=== PATIENT | male | born 1945 | race Caucasian/White ===

== ENCOUNTER 2023-10-21 19:23 | Outpatient (CLI) | payer MEDICARE, MEDICAID | END 2023-10-21 23:59 | disposition EMS.NT | LOC: EMS 19:23 | DX: F03.90 Unspecified dementia, unspecified severity, without behavioral disturbance, psychotic disturbance, mood disturbance, and anxiety (principal); Z91.83 Wandering in diseases classified elsewhere ==

== ENCOUNTER 2023-11-11 08:00 | Outpatient (CLI) | payer MEDICARE, MEDICAID | END 2023-11-11 23:59 | disposition home or self-care (01) | LOC: LAB.N 08:00 | PROVIDERS: ATTEND Physician Assistant Medical | DX: R35.0 Frequency of micturition (principal) | CPT/HCPCS: 87086 ==

== ENCOUNTER 2023-12-26 10:53 | Outpatient (CLI) | payer MEDICARE, MEDICAID | END 2023-12-26 10:54 | disposition critical access hospital (66) | LOC: EMS 10:53 | DX: R50.9 Fever, unspecified (principal); R53.1 Weakness; R09.89 Other specified symptoms and signs involving the circulatory and respiratory systems | CPT/HCPCS: A0425; A0429 ==

== ENCOUNTER 2023-12-26 11:21 | Emergency (ER) | payer MEDICARE, MEDICAID ==
--- NOTE | 2023-12-26 11:26 | ED Physician Documentation ---
PD HPI FEVER - Stated complaint Stated Complaint: FEVER/WEAKNESS - History obtained from History obtained from: EMS - Additional information Additional information: 78-year-old gentleman with dementia presents by ambulance from [facility] dementia care unit for a fever reportedly up to 103.5 today. History from EMS as the patient is demented but reported to be at his baseline. Reportedly the fever started today. He is also been listless with decreased energy over his usual. The patient has no specific complaints and is an unreliable historian. He did receive Tylenol at the facility prior to transport. PD PAST MEDICAL HISTORY - Present Medications Home Medications: Ambulatory Orders Medication Instructions Recorded Confirmed LORazepam [Ativan] 1 tab PO DAILY PRN 12/26/23 12/26/23 QUEtiapine [SEROquel] 1 tab PO BID PRN 12/26/23 12/26/23 QUEtiapine [SEROquel] 1 tab PO TID 12/26/23 12/26/23 - Allergies Allergies/Adverse Reactions: Allergies Allergy/AdvReac Type Severity Reaction Status Date / Time nitroglycerin Allergy Unknown Verified 12/26/23 11:32 PD ED PE NORMAL - Vitals Vital signs reviewed: Yes - General General: No acute distress, Other (He is alert and cooperative, oriented to person only) - HEENT HEENT: Other (Bilateral conjunctival irritation) - Neck Neck: Supple, no meningeal sign, No bony TTP - Cardiac Cardiac: RRR, No murmur - Respiratory Respiratory: No respiratory distress, Other (Rhonchorous left greater than right base) - Abdomen Abdomen: Non tender - Derm Derm: No rash - Neuro Eye Opening: Spontaneous Motor: Obeys Commands Verbal: Confused GCS Score: 14 Results - Vitals Vitals: Vital Signs - 24 hr 12/26/23 12/26/23 11:25 13:00 Temperature 38.4 C H 37.2 C Heart Rate 80 Respiratory 18 Rate Blood Pressure 130/70 O2 Saturation 94 Oxygen O2 Source Room air - Labs Labs: Laboratory Tests 12/26/23 12/26/23 12/26/23 11:38 11:38 11:38 WBC 10.0 RBC 3.91 L Hgb 12.1 L Hct 37.2 L MCV 95.1 H MCH 30.9 MCHC 32.5 RDW 12.8 Plt Count 226 MPV 10.4 Neut # (Auto) 7.5 H Lymph # (Auto) 1.9 Storey # (Auto) 0.5 Eos # (Auto) 0.1 Baso # (Auto) 0.0 Absolute Nucleated RBC 0.00 Nucleated RBC % 0.0 Sodium 137 Potassium 4.2 Chloride 100 L Carbon Dioxide 30 Anion Gap 7.0 BUN 11 Creatinine 0.8 Estimated GFR (MDRD) 94 Glucose 102 Lactic Acid 1.3 Calcium 9.1 Total Bilirubin 0.5 AST 10 ALT 10 Alkaline Phosphatase 68 Total Protein 6.8 Albumin 4.1 Globulin 2.7 Albumin/Globulin Ratio 1.5 Urine Color Urine Clarity Urine pH Ur Specific [place] Urine Protein Urine Glucose (UA) Urine Ketones Urine Occult Blood Urine Nitrite Urine Bilirubin Urine Urobilinogen Ur Leukocyte Esterase Urine RBC Urine WBC Ur Squamous Epith Cells Urine Bacteria Ur Microscopic Review Urine Culture Comments Nasal Adenovirus (PCR) Nasal B. parapertussis DNA (PCR) Nasal Coronavir 229E PCR Nasal Coronavir HKU1 PCR Nasal Coronavir NL63 PCR Nasal Coronavir OC43 PCR Nasal Enterovir/Rhinovir PCR Nasal Influenza B PCR Nasal Influenza A PCR Nasal Parainfluen 1 PCR Nasal Parainfluen 2 PCR Nasal Parainfluen 3 PCR Nasal Parainfluen 4 PCR Nasal RSV (PCR) Nasal B.pertussis DNA PCR Nasal C.pneumoniae (PCR) Beny Human Metapneumo PCR Nasal M.pneumoniae (PCR) Nasal SARS-CoV-2 (PCR) 12/26/23 12/26/23 11:45 12:07 WBC RBC Hgb Hct MCV MCH MCHC RDW Plt Count MPV Neut # (Auto) Lymph # (Auto) [place] # (Auto) Eos # (Auto) Baso # (Auto) Absolute Nucleated RBC Nucleated RBC % Sodium Potassium Chloride Carbon Dioxide Anion Gap BUN Creatinine Estimated GFR (MDRD) Glucose Lactic Acid Calcium Total Bilirubin AST ALT Alkaline Phosphatase Total Protein Albumin Globulin Albumin/Globulin Ratio Urine Color RED/BLOODY Urine Clarity HAZY Urine pH 7.0 Ur Specific [place] 1.020 Urine Protein 30 H Urine Glucose (UA) NEGATIVE Urine Ketones TRACE Urine Occult Blood LARGE H Urine Nitrite NEGATIVE Urine Bilirubin NEGATIVE Urine Urobilinogen 0.2 (NORMAL) Ur Leukocyte Esterase NEGATIVE Urine RBC TNTC H Urine WBC 0-3 Ur Squamous Epith Cells RARE Squamous Urine Bacteria Rare Ur Microscopic Review INDICATED Urine Culture Comments NOT INDICATED Nasal Adenovirus (PCR) NOT DETECTED Nasal B. parapertussis DNA (PCR) NOT DETECTED Nasal Coronavir 229E PCR NOT DETECTED Nasal Coronavir HKU1 PCR NOT DETECTED Nasal Coronavir NL63 PCR NOT DETECTED Nasal Coronavir OC43 PCR NOT DETECTED Nasal Enterovir/Rhinovir PCR NOT DETECTED Nasal Influenza B PCR NOT DETECTED Nasal Influenza A PCR NOT DETECTED Nasal Parainfluen 1 PCR NOT DETECTED Nasal Parainfluen 2 PCR NOT DETECTED Nasal Parainfluen 3 PCR DETECTED A Nasal Parainfluen 4 PCR NOT DETECTED Nasal RSV (PCR) NOT DETECTED Nasal B.pertussis DNA PCR NOT DETECTED Nasal C.pneumoniae (PCR) NOT DETECTED Beny Human Metapneumo PCR NOT DETECTED Nasal M.pneumoniae (PCR) NOT DETECTED Nasal SARS-CoV-2 (PCR) NOT DETECTED PD Medical Decision Making - ED course Complexity details: d/w family (I did update his POA, Ms. Pappas by phone.) ED course: 78-year-old demented gentleman presents from dementia facility with fever. Workup demonstrates CBC with mild anemia. CMP and lactate normal. Urinalysis is bloody, the RN noted to me that she had trialed a straight cath which was unsuccessful and that is likely the cause of any hematuria. He tested positive for parainfluenza 3 which is likely causative. This is a viral syndrome needs no specific treatment. Departure - Departure Disposition: 01 Home, Self Care Clinical Impression: Fever, Parainfluenza Condition: Good Record reviewed to determine appropriate education?: Yes Instructions: ED Viral Syndrome Comments: Catalino tested positive today per parainfluenza which is a viral process similar to the flu. There is no specific treatment other than fever control and pushing fluids. Return if worse.
[2023-12-26 11:41] VITALS: BP 130/70; O2SAT 94
[2023-12-26 11:45] LABS: BASOPHILS % (AUTO) 0.3 %; EOSINOPHILS # (AUTO) 0.1 10^3/uL (0.0-0.7); EOSINOPHILS % (AUTO) 0.6 %; HCT - HEMATOCRIT 37.2 % (42.0-52.0); HGB - HEMOGLOBIN 12.1 g/dL (14.0-18.0); LYMPHOCYTES # (AUTO) 1.9 10^3/uL (1.5-3.5); LYMPHOCYTES % (AUTO) 18.7 %; MEAN CORPUSCULAR HEMOGLOBIN 30.9 pg (27.0-31.0); MEAN CORPUSCULAR HGB CONC 32.5 g/dL (32.0-36.0); MEAN CORPUSCULAR VOLUME 95.1 fL (80.0-94.0); MEAN PLATELET VOLUME 10.4 fL (7.4-11.4); MONOCYTES # (AUTO) 0.5 10^3/uL (0.0-1.0); MONOCYTES % (AUTO) 5.4 %; NEUTROPHILS # (AUTO) 7.5 10^3/uL (1.5-6.6); NEUTROPHILS % (AUTO) 74.7 %; PLT - PLATELET COUNT 226 10^3/uL (130-450); RED BLOOD COUNT 3.91 10^6/uL (4.70-6.10); RED CELL DISTRIBUTION WIDTH 12.8 % (12.0-15.0)
[2023-12-26 12:04] LABS: ALBUMIN 4.1 g/dL (3.2-5.5); ALBUMIN/GLOBULIN RATIO 1.5 (1.0-2.2); BILIRUBIN,TOTAL 0.5 mg/dL (0.2-1.0); CALCIUM 9.1 mg/dL (8.5-10.3); CREATININE 0.8 mg/dL (0.6-1.3); POTASSIUM 4.2 mmol/L (3.5-4.5); TOTAL PROTEIN 6.8 g/dL (6.4-8.9)
[2023-12-26 12:17] LABS: BILIRUBIN,URINE NEGATIVE (NEGATIVE); GLUCOSE, URINE (UA) NEGATIVE (NEGATIVE); KETONES,URINE (UA) TRACE mg/dL (NEGATIVE); LEUKOCYTE ESTERASE, URINE NEGATIVE (NEGATIVE); NITRITE,URINE NEGATIVE (NEGATIVE); OCCULT BLOOD,URINE LARGE (NEGATIVE); PROTEIN,URINE 30 mg/dL (NEGATIVE); UROBILINOGEN,URINE 0.2 (NORMAL) E.U./dL (NORMAL)
[2023-12-26 12:23] LABS: CLARITY,URINE HAZY (CLEAR)
[2023-12-26 12:42] LABS: B. PARAPERTUSSIS- RESP PCR PAN NOT DETECTED; B. PERTUSSIS- RESP PCR PANEL NOT DETECTED; C. PNEUMONIAE- RESP PCR PANEL NOT DETECTED; CORONAVIRUS 229E-RESP PCR NOT DETECTED; CORONAVIRUS HKU1-RESP PCR NOT DETECTED; CORONAVIRUS NL63-RESP PCR NOT DETECTED; CORONAVIRUS OC43-RESP PCR NOT DETECTED; HUMAN METAPNEUMOVIRUS NOT DETECTED; INFLUENZA A- RESP PCR PANEL NOT DETECTED; INFLUENZA B - RESP PCR PANEL NOT DETECTED; M. PNEUMONIAE- RESP PCR PANEL NOT DETECTED; PARAINFLUENZA VIRUS 1 NOT DETECTED; PARAINFLUENZA VIRUS 2 NOT DETECTED; PARAINFLUENZA VIRUS 3 DETECTED; PARAINFLUENZA VIRUS 4 NOT DETECTED; RHINOVIRUS/ENTEROVIRUS NOT DETECTED; RSV- RESP PCR PANEL NOT DETECTED; SARS-CoV-2 -RESP PCR PANEL NOT DETECTED
[2023-12-26 12:48] LABS: BACTERIA,URINE Rare /HPF (None Seen); RBC,URINE TNTC /HPF (0-5); SQUAMOUS EPITHELIAL CELL,UR RARE Squamous (<= Few); WBC,URINE 0-3 /HPF (0-3)
--- NOTE | 2023-12-26 12:52 | XRAY Report ---
PROCEDURE: Chest 1V INDICATIONS: fever TECHNIQUE: One view of the chest was acquired. COMPARISON: None. FINDINGS: Surgical changes and devices: None. Lungs and pleura: Patient is rotated, limiting evaluation. No pleural effusions or pneumothorax. Anna ngs are clear. Mediastinum: Mediastinal contours appear normal. Heart size is normal. Bones and chest wall: No suspicious bony lesions. Overlying soft tissues appear unremarkable. IMPRESSION: No acute cardiopulmonary process. Reviewed by: Eduardo Fisher MD on 12/26/2023 12:50 PM PDT Approved by: Eduardo Fisher MD on 12/26/2023 12:50 PM PDT Station ID: [id number]
[2023-12-26] MEDS: QUEtiapine 100 MG TABLET PO STA (13:13)
== END 2023-12-26 13:38 | disposition home or self-care (01) ==
LOC: EDUNIT# → ED 11:21
DX: B34.8 Other viral infections of unspecified site (principal); R31.9 Hematuria, unspecified; F03.90 Unspecified dementia, unspecified severity, without behavioral disturbance, psychotic disturbance, mood disturbance, and anxiety
CPT/HCPCS: 36415; 71045; 80053; 81001; 83605; 85025; 87040; 87633; 99283; 99284; A9270; 81003; 87086

== ENCOUNTER 2023-12-26 13:47 | Outpatient (CLI) | payer MEDICARE, MEDICAID | END 2023-12-26 23:59 | disposition home or self-care (01) | LOC: EMS 13:47 | PROVIDERS: ATTEND Emergency Medicine | DX: F03.90 Unspecified dementia, unspecified severity, without behavioral disturbance, psychotic disturbance, mood disturbance, and anxiety (principal); J18.9 Pneumonia, unspecified organism; B34.8 Other viral infections of unspecified site; Z74.01 Bed confinement status | CPT/HCPCS: A0425; A0428 ==

== ENCOUNTER 2023-12-29 12:34 | Inpatient (IN) | payer MEDICARE, MEDICAID ==
[2023-12-29] MEDS: SODIUM CHLORIDE 0.9% 1,000 ML IV STA ×3 (12:47→13:53)
[2023-12-29] MEDS: ACETAMINOPHEN 650 MG SUPP PR STA (13:01)
--- NOTE | 2023-12-29 13:03 | ED Physician Documentation ---
History of Present Illness - Stated complaint Stated Complaint: ALT LOC/FEVER - Chief complaint Chief Complaint: General - History obtained from History obtained from: EMS, Other (Sister) - Additonal information Additional information: Patient is a 78-year-old male with a history of dementia from critical access hospital presenting for evaluation of worsening altered mental status. Patient was seen a few days ago in the emergency department for weakness and fever and found to have an infection related to parainfluenza. He was discharged back to his assisted living facility. Reportedly yesterday and today he has continued to have spikes of fevers and has become increasingly weak and altered. EMS was called this morning and they noted that he had heart rate elevated in the 250s. He does have a POLST at that they reviewed stating that he is a DNR and comfort measures only. Child Care Group Leader spoke with patient's POA who gave consent for cardioversion. Patient was cardioverted with 100 J of electricity And patient's heart rate is now in the 150s. cabin crew were also bagging the patient to assist with his ventilations as he was hypoxic. Review of Systems Unable to obtain: Confused, Dementia PD PAST MEDICAL HISTORY - Past Medical History Past Medical History: Yes Neuro: Dementia - Past Surgical History Past Surgical History: No - Present Medications Home Medications: Ambulatory Orders Medication Instructions Recorded Confirmed QUEtiapine [SEROquel] 100 mg PO BID PRN 12/26/23 12/29/23 QUEtiapine [SEROquel] 100 mg PO TID 12/26/23 12/29/23 Acetaminophen [Acetaminophen Extra 1,000 mg PO TID 12/29/23 12/29/23 Strength] Divalproex [Adams Castro] 125 mg PO BID 12/29/23 12/29/23 Gabapentin [Neurontin] 300 mg PO TID 12/29/23 12/29/23 LORazepam [Ativan] 0.5 mg PO DAILY PRN 12/29/23 12/29/23 LORazepam [Ativan] 0.5 mg PO HS 12/29/23 12/29/23 Sertraline HCl 100 mg PO DAILY 12/29/23 12/29/23 Trazodone HCl 100 mg PO HS 12/29/23 12/29/23 cloNIDine [Catapres] 0.1 mg PO BID 12/29/23 12/29/23 - Allergies Allergies/Adverse Reactions: Allergies Allergy/AdvReac Type Severity Reaction Status Date / Time nitroglycerin Allergy Unknown Verified 12/29/23 12:48 - Social History Does the pt smoke?: No Smoking Status: Never smoker Does the pt drink ETOH?: No Does the pt have substance abuse?: No PD ED PE NORMAL - General General: Other (Altered, responsive to painful stimuli, moans,). No: Alert and oriented X 3 - HEENT HEENT: Atraumatic, PERRL, EOMI, Other (Dry mucous membranes) - Cardiac Cardiac: Other (Tachycardic, regular rhythm) - Respiratory Respiratory: Other (Tachypneic, shallow respirations) - Abdomen Abdomen: Normal bowel sounds, Soft, Non tender, Non distended - Derm Derm: Other (Mottled extremities) - Neuro Neuro: No: Alert and oriented X 3 Results - Vitals Vitals: Vital Signs - 24 hr 12/29/23 12/29/23 12/29/23 12:42 13:02 13:08 Temperature 39.4 C H 40.8 C H Heart Rate 153 H 147 H Respiratory 53 H 21 Rate Blood Pressure 157/86 H 169/83 H O2 Saturation 95 99 If not protocol 15 : Oxygen Flow, liters/minute 12/29/23 12/29/23 12/29/23 13:30 14:00 14:20 Temperature 39.2 C H Heart Rate 122 H 109 H Respiratory 35 H 31 H Rate Blood Pressure 163/66 H 137/62 H O2 Saturation 100 100 If not protocol 15 15 : Oxygen Flow, liters/minute 12/29/23 12/29/23 12/29/23 14:54 15:00 15:59 Temperature 37.6 C Heart Rate 109 H 112 H 106 H Respiratory 27 H 27 H 31 H Rate Blood Pressure 132/66 H 130/63 130/81 H O2 Saturation 96 94 93 If not protocol 9 9 6 : Oxygen Flow, liters/minute Oxygen O2 Source Simple Mask - EKG (time done) 1243 EKG releavant findings:: EKG personally interpreted by author of this note. Relevant findings are: Rate 149, SVT, no STEMI - Labs Labs: Laboratory Tests 12/29/23 12/29/23 12/29/23 12:45 12:57 12:57 WBC 9.6 RBC 4.21 L Hgb 12.9 L Hct 40.6 L MCV 96.4 H MCH 30.6 MCHC 31.8 L RDW 13.1 Plt Count 251 MPV 11.7 H Neut # (Auto) 7.8 H Lymph # (Auto) 1.4 L [place] # (Auto) 0.2 Eos # (Auto) 0.0 Baso # (Auto) 0.1 Absolute Nucleated RBC 0.05 Nucleated RBC % 0.5 Manual Slide Review Indicated RBC Morph Micro Appear 1+ ANISOCYTOSIS Sodium 142 Potassium 3.7 Chloride 104 Carbon Dioxide 17 L Anion Gap 21.0 H BUN 43 H Creatinine 2.2 H Estimated GFR (MDRD) 29 L Glucose 303 H Lactic Acid Calcium 9.1 Total Bilirubin 1.1 H AST 24 ALT 19 Alkaline Phosphatase 43 B-Natriuretic Peptide Total Protein 7.1 Albumin 3.6 Globulin 3.5 Albumin/Globulin Ratio 1.0 Lipase < 10 L Urine Color Urine Clarity Urine pH Ur Specific [place] Urine Protein Urine Glucose (UA) Urine Ketones Urine Occult Blood Urine Nitrite Urine Bilirubin Urine Urobilinogen Ur Leukocyte Esterase Urine RBC Urine WBC Ur Squamous Epith Cells Urine Bacteria Urine Casts Ur Microscopic Review Urine Culture Comments Nasal Adenovirus (PCR) NOT DETECTED Nasal B. parapertussis DNA (PCR) NOT DETECTED Nasal Coronavir 229E PCR NOT DETECTED Nasal Coronavir HKU1 PCR NOT DETECTED Nasal Coronavir NL63 PCR NOT DETECTED Nasal Coronavir OC43 PCR NOT DETECTED Nasal Enterovir/Rhinovir PCR NOT DETECTED Nasal Influenza B PCR NOT DETECTED Nasal Influenza A PCR NOT DETECTED Nasal Parainfluen 1 PCR NOT DETECTED Nasal Parainfluen 2 PCR NOT DETECTED Nasal Parainfluen 3 PCR DETECTED A Nasal Parainfluen 4 PCR NOT DETECTED Nasal RSV (PCR) NOT DETECTED Nasal B.pertussis DNA PCR NOT DETECTED Nasal C.pneumoniae (PCR) NOT DETECTED Beny Human Metapneumo PCR NOT DETECTED Nasal M.pneumoniae (PCR) NOT DETECTED Nasal SARS-CoV-2 (PCR) NOT DETECTED 12/29/23 12/29/23 12/29/23 12:57 12:57 14:16 WBC RBC Hgb Hct MCV MCH MCHC RDW Plt Count MPV Neut # (Auto) Lymph # (Auto) [place] # (Auto) Eos # (Auto) Baso # (Auto) Absolute Nucleated RBC Nucleated RBC % Manual Slide Review RBC Morph Micro Appear Sodium Potassium Chloride Carbon Dioxide Anion Gap BUN Creatinine Estimated GFR (MDRD) Glucose Lactic Acid 7.8 H* Calcium Total Bilirubin AST ALT Alkaline Phosphatase B-Natriuretic Peptide 750 H Total Protein Albumin Globulin Albumin/Globulin Ratio Lipase Urine Color DARK YELLOW Urine Clarity CLEAR Urine pH 6.0 Ur Specific [place] 1.025 Urine Protein 100 H Urine Glucose (UA) NEGATIVE Urine Ketones NEGATIVE Urine Occult Blood MODERATE H Urine Nitrite NEGATIVE Urine Bilirubin NEGATIVE Urine Urobilinogen 1 (NORMAL) Ur Leukocyte Esterase NEGATIVE Urine RBC 11-25 H Urine WBC 4-5 Ur Squamous Epith Cells NONE SEEN Urine Bacteria Rare Urine Casts 0-2 Cellular Casts Ur Microscopic Review INDICATED Urine Culture Comments NOT INDICATED Nasal Adenovirus (PCR) Nasal B. parapertussis DNA (PCR) Nasal Coronavir 229E PCR Nasal Coronavir HKU1 PCR Nasal Coronavir NL63 PCR Nasal Coronavir OC43 PCR Nasal Enterovir/Rhinovir PCR Nasal Influenza B PCR Nasal Influenza A PCR Nasal Parainfluen 1 PCR Nasal Parainfluen 2 PCR Nasal Parainfluen 3 PCR Nasal Parainfluen 4 PCR Nasal RSV (PCR) Nasal B.pertussis DNA PCR Nasal C.pneumoniae (PCR) Beny Human Metapneumo PCR Nasal M.pneumoniae (PCR) Nasal SARS-CoV-2 (PCR) PD Medical Decision Making - ED course Complexity details: reviewed results, d/w patient, d/w family ED course: Patient is a 78-year-old male who is a DNR, comfort measures only on his pulse presenting with altered mental status, hypoxic, febrile. He is altered. He was cardioverted in the field for SVT with heart rates in the 250s. Heart rate on arrival is 150s. Blood pressure has been stable. Rectal temp is 105. Sepsis labs initiated. Chest x-ray which I reviewed shows opacities suggestive of pulmonary edema. Lactic is elevated at 7.5.Creatinine 2.2 (normal a few days ago). Likely related to dehydration. Patient was given 3 L of IV fluids, acetaminophen. CT head, chest and abdomen pelvis were obtained and reviewed. Patient has findings on CT CT scan of the chest of multifocal pneumonia. Started on Rocephin and vancomycin. Remains minimally responsive but blood pressures have been stable. Discussed with admitting hospitalist who will admit to ICU for further management. 1240 - D/W POA Sister - Agrees that patient is a DNR and would not want aggressive resuscitation. However states that she does think he would want m edical treatment such as antibiotics and fluids and hospitalization and not just comfort measures as indicated on his POLST. - Critical Care Time(min): 40 Time Includes: Direct patient care, Review records, Reassess patient Departure - Departure Disposition: 66 [facility] DC/Xfer Clinical Impression: Multifocal pneumonia, Acute hypoxemic respiratory failure, SVT (supraventricular tachycardia), Sepsis, Parainfluenza, Acute encephalopathy, SHAZIA (acute kidney injury) Condition: Critical Discharge Date/Time: 12/29/23 17:49
[2023-12-29 13:13] LABS: BASOPHILS # (AUTO) 0.1 10^3/uL (0.0-0.1); BASOPHILS % (AUTO) 0.8 %; HCT - HEMATOCRIT 40.6 % (42.0-52.0); HGB - HEMOGLOBIN 12.9 g/dL (14.0-18.0); LYMPHOCYTES # (AUTO) 1.4 10^3/uL (1.5-3.5); LYMPHOCYTES % (AUTO) 14.5 %; MEAN CORPUSCULAR HEMOGLOBIN 30.6 pg (27.0-31.0); MEAN CORPUSCULAR HGB CONC 31.8 g/dL (32.0-36.0); MEAN CORPUSCULAR VOLUME 96.4 fL (80.0-94.0); MEAN PLATELET VOLUME 11.7 fL (7.4-11.4); MONOCYTES # (AUTO) 0.2 10^3/uL (0.0-1.0); MONOCYTES % (AUTO) 2.4 %; NEUTROPHILS # (AUTO) 7.8 10^3/uL (1.5-6.6); NEUTROPHILS % (AUTO) 81.2 %; NRBC ABSOLUTE COUNT (AUTO) 0.05 x10^3/uL; NUCLEATED RED BLOOD CELLS AUTO 0.5 /100WBC; PLT - PLATELET COUNT 251 10^3/uL (130-450); RED BLOOD COUNT 4.21 10^6/uL (4.70-6.10); RED CELL DISTRIBUTION WIDTH 13.1 % (12.0-15.0); WHITE BLOOD COUNT 9.6 x10^3/uL (4.8-10.8)
[2023-12-29 13:18] LABS: SLIDE REVIEW? Indicated
[2023-12-29] MEDS: KETOROLAC 15 MG/ML VIAL IVP STA (13:23)
[2023-12-29 13:30] LABS: ALBUMIN 3.6 g/dL (3.2-5.5); ALKALINE PHOSPHATASE 43 IU/L (42-121); ALT ALANINE AMINOTRANSFERASE 19 IU/L (10-60); AST ASPARTATE AMINOTRANSFERASE 24 IU/L (10-42); BILIRUBIN,TOTAL 1.1 mg/dL (0.2-1.0); BUN - BLOOD UREA NITROGEN 43 mg/dL (6-20); CALCIUM 9.1 mg/dL (8.5-10.3); CARBON DIOXIDE - CO2 17 mmol/L (21-32); CHLORIDE 104 mmol/L (101-111); CREATININE 2.2 mg/dL (0.6-1.3); GFR - MDRD 29 (>89); GLUCOSE 303 mg/dL (74-104); LIPASE < 10 U/L (11-82); POTASSIUM 3.7 mmol/L (3.5-4.5); SODIUM 142 mmol/L (135-145); TOTAL PROTEIN 7.1 g/dL (6.4-8.9)
[2023-12-29 13:34] LABS: RBC MORPHOLOGY (MULTIPLE) 1+ ANISOCYTOSIS (NORMAL)
--- NOTE | 2023-12-29 14:16 | XRAY Report ---
PROCEDURE: Chest 1V INDICATIONS: SOA TECHNIQUE: One view of the chest was acquired. COMPARISON: None. FINDINGS: Surgical changes and devices: None. Lungs and pleura: Interstitial markings and perihilar opacities with peripheral bronchial cuffing. Mediastinum: Mediastinal contours appear normal. Heart size is enlarged. Bones and chest wall: No suspicious bony lesions. Overlying soft tissues appear unremarkable. IMPRESSION: Suspected moderate to severe pulmonary edema. Superimposed atypical pneumonia not excluded. Reviewed by: Usman Butler MD on 12/29/2023 2:15 PM PDT Approved by: Usman Butler MD on 12/29/2023 2:15 PM PDT Station ID: [id number]
[2023-12-29 14:19] LABS: BILIRUBIN,URINE NEGATIVE (NEGATIVE); GLUCOSE, URINE (UA) NEGATIVE (NEGATIVE); KETONES,URINE (UA) NEGATIVE (NEGATIVE); LEUKOCYTE ESTERASE, URINE NEGATIVE (NEGATIVE); NITRITE,URINE NEGATIVE (NEGATIVE); OCCULT BLOOD,URINE MODERATE (NEGATIVE); PROTEIN,URINE 100 mg/dL (NEGATIVE); UROBILINOGEN,URINE 1 (NORMAL) E.U./dL (NORMAL)
[2023-12-29 14:20] LABS: CLARITY,URINE CLEAR (CLEAR)
[2023-12-29 14:21] LABS: B. PARAPERTUSSIS- RESP PCR PAN NOT DETECTED; B. PERTUSSIS- RESP PCR PANEL NOT DETECTED; C. PNEUMONIAE- RESP PCR PANEL NOT DETECTED; CORONAVIRUS 229E-RESP PCR NOT DETECTED; CORONAVIRUS HKU1-RESP PCR NOT DETECTED; CORONAVIRUS NL63-RESP PCR NOT DETECTED; CORONAVIRUS OC43-RESP PCR NOT DETECTED; HUMAN METAPNEUMOVIRUS NOT DETECTED; INFLUENZA A- RESP PCR PANEL NOT DETECTED; INFLUENZA B - RESP PCR PANEL NOT DETECTED; M. PNEUMONIAE- RESP PCR PANEL NOT DETECTED; PARAINFLUENZA VIRUS 1 NOT DETECTED; PARAINFLUENZA VIRUS 2 NOT DETECTED; PARAINFLUENZA VIRUS 3 DETECTED; PARAINFLUENZA VIRUS 4 NOT DETECTED; RHINOVIRUS/ENTEROVIRUS NOT DETECTED; RSV- RESP PCR PANEL NOT DETECTED; SARS-CoV-2 -RESP PCR PANEL NOT DETECTED
[2023-12-29 14:25] LABS: BACTERIA,URINE Rare /HPF (None Seen); SQUAMOUS EPITHELIAL CELL,UR NONE SEEN (<= Few)
--- NOTE | 2023-12-29 16:17 | CT Report ---
PROCEDURE: Abdomen/Pelvis WO INDICATIONS: fever/renal failure TECHNIQUE: A CT scan of the abdomen and pelvis was performed without the use of intravenous contrast. Images we re recorded and evaluated at appropriate window settings. Reformats: coronal and sagittal. For radiat ion dose reduction, the following was used: automated exposure control, adjustment of mA and/or kV ac cording to patient size. COMPARISON: None. FINDINGS: Image quality: Suboptimal due to motion artifact and arm positioning. Lower chest: Separately dictated. Liver: No contour-deforming mass. Gallbladder: No radiopaque stones or wall thickening. Biliary tree: No intrahepatic or extrahepatic dilation, accounting for age. Spleen: No splenomegaly. Pancreas: No pancreatic ductal dilation. Adrenals: No adrenal nodule. Kidneys and ureters: No hydronephrosis. No contour-deforming mass. Stomach, bowel and peritoneum: No gastric or small bowel dilation. No abnormal wall thickening. No pa thologic free fluid. Diverticulosis without evidence of diverticulitis. Lymph nodes: No central or retroperitoneal adenopathy. Vessels: No infrarenal aortic aneurysm. Reproductive organs: Prostate is enlarged. Bladder: Bladder wall thickness is normal, accounting for underdistention. No calcified bladder stone s. Pelvic lymph nodes: No adenopathy by size criteria. Bones: No aggressive osseous abnormality. Other: Small right inguinal hernia containing fat. IMPRESSION: No infectious process of the abdomen. Please see same day chest CT for further discussion. Colonic diverticulosis without evidence of diverticulitis. Reviewed by: Usman Butler MD on 12/29/2023 4:16 PM PDT Approved by: Usman Butler MD on 12/29/2023 4:16 PM PDT Station ID: [id number]
--- NOTE | 2023-12-29 16:19 | CT Report ---
PROCEDURE: Chest WO INDICATIONS: Fever, AMS TECHNIQUE: A CT scan of the chest was performed. Intravenous contrast media was not administered. Images were re corded and evaluated at appropriate window settings. Reformats: axial MIP of the chest, coronal and s agittal. For radiation dose reduction, the following was used: automated exposure control, adjustment of mA and/or kV according to patient size. COMPARISON: Same day chest radiograph. FINDINGS: Image quality: Diagnostic. Chest wall and lower neck: No thyroid nodule which requires sonographic follow up. No axillary or sup raclavicular adenopathy by size. Lungs and pleura: Dependent consolidation and dependent groundglass. Superimposed mild smooth interst itial thickening. Mediastinum: Heart size is enlarged. No pericardial effusion. No large vessel abnormality. No mediast inal adenopathy by size criteria. Three-vessel coronary calcifications. Bones: No aggressive osseous abnormality. Upper Abdomen: Separately dictated. IMPRESSION: Dependent consolidation and dependent groundglass concerning for aspiration or multifocal pneumonia. Superimposed mild pulmonary edema. Reviewed by: Usman Butler MD on 12/29/2023 4:18 PM PDT Approved by: Usman Butler MD on 12/29/2023 4:18 PM PDT Station ID: [id number]
--- NOTE | 2023-12-29 16:24 | CT Report ---
PROCEDURE: Head WO INDICATIONS: AMS TECHNIQUE: Noncontrast 4.5 mm thick angled axial sections acquired from the foramen magnum to the vertex. For r adiation dose reduction, the following was used: automated exposure control, adjustment of mA and/or kV according to patient size. COMPARISON: None. FINDINGS: Image quality: Excellent. CSF spaces: Basal cisterns are patent. No extra-axial fluid collections. Ventricles are normal in size and shape. Brain: No midline shift. No intracranial masses or hemorrhage. [place]-white matter interface is norm al. Intracranial carotid calcifications. Age-related volume loss and small vessel ischemic change. Skull and face: Calvarium and visualized facial bones are intact, without suspicious lesions. Sinuses: Visualized sinuses and mastoids are clear. IMPRESSION: No acute intracranial pathology. Reviewed by: Fabian Woodruff MD on 12/29/2023 4:22 PM PDT Approved by: Fabian Woodruff MD on 12/29/2023 4:22 PM PDT Station ID: [id number]
[2023-12-29] MEDS ORDERED: ONDANSETRON 4 MG/2 ML VIAL IVP PRN (16:37)
[2023-12-29] MEDS ORDERED: ONDANSETRON ODT 4 MG TABLET TL PRN (16:37)
[2023-12-29] MEDS: cefTRIAXone 1 GM in SODIUM CHLORIDE 0.9% MINIBAG 100 ML IV STA (16:42)
--- NOTE | 2023-12-29 16:54 | PHARMACY PROGRESS NOTE ---
- Therapy Status Vancomycin regimen day #: 1 Therapy status: Awaiting steady state Basis for treatment: Empirical Treatment indication: AMS? Trough goal: AUC 400-600 - SHAZIA Risk Risk level for Acute Kidney Injury: High Acute Kidney Injury risk factors: Other nephrotoxic agents, Piperacillin/Tozobactam, Baseline CrCl <50, Goal trough >15 - Monitoring and Recommendation Clinical response to treatment: I&O Previous 24 hours 12/27/23 12/28/23 12/29/23 23:59 23:59 23:59 Intake Total 3000 Balance 3000 Lab Results 12/29/23 12:57 BUN 43 H Creatinine 2.2 H Estimated GFR (MDRD) 29 L Areas for additional monitoring: IV to PO when appropriate, Therapy de-escalat ion based on culture results, Acute Kidney Injury, C. difficile infection risk reduction Pharmacy recommendation: Continue current regime (LOAD W/ 1000 MG X1. OBTAIN RANDOM VANCO LEVEL IN AM TO ENSURE CLEARANCE. DOSE PER LEVELS FOR SHAZIA.)
[2023-12-29] MEDS ORDERED: VANCOMYCIN INJ 1 GM in SODIUM CHLORIDE 0.9% 250 ML IV ONE (17:00)
--- NOTE | 2023-12-29 17:11 | HISTORY & PHYSICAL EXAMINATION ---
Chief Complaint - Chief Complaint Chief Complaint: Encephalopathy History of Present Illness - Admitted From Admitted From:: ED - History Obtained From Records Reviewed: Yes History obtained from: Chart Exam Limitations: Patient is encephalopathic- - History of Present Illness HPI Comment/Other: Patient is a 78-year-old male with a past medical history of dementia who presented to the ED with worsening altered mental status. Patient was seen in the emergency department several days ago with weakness and fever and was di agnosed with parainfluenza. Unfortunately his symptoms continue to worsen and he presented again today. Prior to arrival, EMS was called and noted that he had a heart rate in the 250s and he was given a synchronized cardioversion due to concern for SVT. Upon presentation to the ED he was noted to be hypoxic requiring supplemental oxygen. Patient was noted to be severely septic with an elevated lactic acid. CT scans revealed evidence of pneumonia he was started on IV vancomycin and ceftriaxone. Per patient's POLST, he is DNR with comfort care orders. Discussion was had with his POA and guardian who informed me that she is open to treating all reversible conditions with antibiotics, fluids, medications however she did not want any heroic measures including intubation or pressors. He remains DNR. Patient also does not have any history of seizures. At baseline he is demented but is conversational. Patient admitted admitted to the ICU for further management of his severe sepsis. History - Past Medical History Neuro: reports: Dementia MRSA Hx?: No Meds/Allgy - Home Medications Home Medications: Ambulatory Orders Medication Instructions Recorded Confirmed QUEtiapine [SEROquel] 1 tab PO BID PRN 12/26/23 12/29/23 QUEtiapine [SEROquel] 1 tab PO TID 12/26/23 12/29/23 Acetaminophen [Acetaminophen Extra 1,000 mg PO TID 12/29/23 12/29/23 Strength] Divalproex Dr [Depakote Dr] 125 mg PO BID 12/29/23 12/29/23 Gabapentin [Neurontin] 300 mg PO TID 12/29/23 12/29/23 LORazepam [Ativan] 0.5 mg PO DAILY PRN 12/29/23 12/29/23 LORazepam [Ativan] 0.5 mg PO HS 12/29/23 12/29/23 Sertraline HCl 100 mg PO DAILY 12/29/23 12/29/23 Trazodone HCl 100 mg PO HS 12/29/23 12/29/23 cloNIDine [Catapres] 0.1 mg PO BID 12/29/23 12/29/23 - Allergies Allergies/Adverse Reactions: Allergies Allergy/AdvReac Type Severity Reaction Status Date / Time nitroglycerin Allergy Unknown Verified 12/29/23 12:48 Review of Systems - Other Findings Other Findings: Unable to assess due to encephalopathy. Prior Level of Functionality: Resides in dementia unit. Home Place. Exam - Vital Signs Vital Signs: Vital Signs x48h Temp Pulse Resp BP Pulse Ox O2 Flow Rate 12/29/23 15:59 37.6 C 106 H 31 H 130/81 H 93 6 12/29/23 15:00 112 H 27 H 130/63 94 9 12/29/23 14:54 109 H 27 H 132/66 H 96 9 12/29/23 14:20 109 H 31 H 137/62 H 100 15 12/29/23 14:00 39.2 C H 12/29/23 13:30 122 H 35 H 163/66 H 100 15 12/29/23 13:08 40.8 C H 12/29/23 13:02 147 H 21 169/83 H 99 15 12/29/23 12:42 39.4 C H 153 H 53 H 157/86 H 95 - Physical Exam General Appearance: positive: Other (Encephalopathic) Eyes Bilateral: positive: Normal inspection, PERRL Respiratory: positive: Chest non-tender, No respiratory distress, Breath sounds nml Cardiovascular: positive: No murmur, No gallop, Tachycardia Abdomen: positive: Non-tender, No organomegaly, Nml bowel sounds Neurologic/Psychiatric: positive: Oriented x3, CN's nml (2-12) Sepsis Event Note (H) - Sepsis Criteria Sepsis Criteria: Recorded Temperature greater than 38.3C or Less than 36C, Recorded Heart Rate greater than 90 bpm, Metabolic: lactate > 2 mmol/L Conclusion/Plan - Problem List (1) Severe sepsis Conclusion/Plan: --Severe sepsis secondary to suspected bacterial pneumonia, possibly gram negative. Some concern for aspiration. --Start on IV Vancomycin and Zosyn. --Blood cultures pending. Will also obtain a respiratory culture. --Patient is DNR with comfort care on POLST. We will monitor him in the ICU and downgrade as necessary. Did have a discussion with his POA after he was admitted, she did not want any heroic measures. He is appropriate for the med/surg floor. (2) Lactic acidosis Conclusion/Plan: --Will trend until clearance of LA. (3) Parainfluenza Conclusion/Plan: --Will treat with dexamethasone. He is requiring supplemental oxygen. (4) Dementia Conclusion/Plan: --Patient is on several chronic medications. Will hold them for now given his acute encephalopathy and concern for aspiration. - Lab Results Fish Bones: 12/29/23 12:57 12/29/23 12:57 - Diagnostic Imaging Results Diagnostic Imaging Results: positive: Final report reviewed
[2023-12-29] MEDS: VANCOMYCIN INJ 1 GM in SODIUM CHLORIDE 0.9% 250 ML IV ONE (18:06)
[2023-12-29] MEDS: SODIUM CHLORIDE 0.9% 1,000 ML IV SCH (18:06)
[2023-12-29] MEDS: SODIUM CHLORIDE FLUSH 0.9% 10 ML SYRINGE IVP SCH (18:07)
--- NOTE | 2023-12-29 18:20 | PHARMACY PROGRESS NOTE ---
- Best Possible Medication History Admit Date and Time: 12/29/23 9903 Processed by: Pharmacy Medications reviewed in ED?: Yes Medication History completed: Yes Patient Interview: Pt unable to participate Secondary Source(s): Written medication list, Pharmacy records, Insurance records As the person ultimately responsible for medication therapy, providers are able to order a medication from an existing home medication list in [facility] via the "Reconcile Routine" prior to Confirmation of that medication by client support manager. Such practice is discouraged except when the physician, in their clinical judgment, deems that a medical need exists for a medication without regard to previous use.
[2023-12-29] MEDS: PIPERACILLIN/TAZOBACTAM 3.375 GM in SODIUM CHLORIDE 0.9% MINIBAG 100 ML IV SCH (22:47)
[2023-12-30 04:49] LABS: BASOPHILS % (AUTO) 1.2 %; HCT - HEMATOCRIT 37.5 % (42.0-52.0); HGB - HEMOGLOBIN 11.7 g/dL (14.0-18.0); LYMPHOCYTES % (AUTO) 9.9 %; MEAN CORPUSCULAR HEMOGLOBIN 30.6 pg (27.0-31.0); MEAN CORPUSCULAR HGB CONC 31.2 g/dL (32.0-36.0); MEAN CORPUSCULAR VOLUME 98.2 fL (80.0-94.0); MEAN PLATELET VOLUME 11.7 fL (7.4-11.4); MONOCYTES % (AUTO) 2.8 %; NEUTROPHILS % (AUTO) 85.1 %; PLT - PLATELET COUNT 207 10^3/uL (130-450); RED BLOOD COUNT 3.82 10^6/uL (4.70-6.10); RED CELL DISTRIBUTION WIDTH 13.4 % (12.0-15.0); WHITE BLOOD COUNT 6.1 x10^3/uL (4.8-10.8)
[2023-12-30] MEDS: ACETAMINOPHEN 1,000 MG/100 ML 1,000 MG/100 ML BAG IV PRN (05:00)
[2023-12-30 05:02] LABS: ABNORMAL LYMPHS % (MANUAL) 0 %; BAND NEUTROPHILS % (MANUAL) 0 %
[2023-12-30 05:09] LABS: CALCIUM 8.5 mg/dL (8.5-10.3); CREATININE 1.6 mg/dL (0.6-1.3)
[2023-12-30 05:11] LABS: MAGNESIUM 2.4 mg/dL (1.7-2.3); PHOSPHORUS 2.8 mg/dL (2.5-5.0)
[2023-12-30 05:19] LABS: VANCOMYCIN,RANDOM 9.5 ug/mL
[2023-12-30 05:47] LABS: CALCIUM, IONIZED 1.09 mmol/L (1.15-1.33); VBG PH 7.368 (7.31-7.41)
[2023-12-30 06:05] LABS: LYMPHOCYTES % (MANUAL) 21 %; NEUTROPHILS # (MANUAL) 3.2 10^3/uL (1.5-6.6); REACTIVE LYMPHS % (MANUAL) 11 %
[2023-12-30 06:06] LABS: DIFFERENTIAL COMMENT MANUAL DIFFERENTIAL; PLATELET ESTIMATE, MANUAL NORMAL (130-450,000) (NORMAL); PLATELET MORPHOLOGY PLATELET C (NORMAL)
[2023-12-30] MEDS: CALCIUM GLUC 1,000MG/50ML-NACL 1,000 MG/50 ML BAG IV ONE (06:13)
[2023-12-30] MEDS: METOPROLOL 5 MG/5 ML VIAL IVP ONE (06:20)
[2023-12-30] MEDS: SODIUM CHLORIDE FLUSH 0.9% 10 ML SYRINGE IVP PRN (06:21)
--- NOTE | 2023-12-30 08:12 | PROVIDER PROGRESS NOTE ---
Subjective - Prog Note Date Prog Note Date: 12/30/23 Prog Note Time: 08:10 - Subjective Pt reports feeling: Improved Subjective: No complaints of respiratory distress. Current Medications - Current Medications Current Medications: Medications Piperacillin Sod/Tazobactam (Sod 3.375 gm/ Sodium Chloride) 100 mls @ 200 mls/hr IV Q6H ZOILA Last Admin: 12/30/23 05:00 Dose: Infused Acetaminophen (Acetaminophen) 1,000 mg in 100 mls @ 400 mls/hr IV Q6HR PRN PRN Reason: Moderate Pain (Level 4-6) Last Admin: 12/30/23 05:15 Dose: Infused Dexamethasone Sodium Phosphate (Dexamethasone 10 Mg/Ml Vial) 6 mg IVP DAILY ZOILA Stop: 01/09/24 08:59 Dextrose (D5w) 1,000 mls @ 100 mls/hr IV .Q10H ZOILA Enoxaparin Sodium (Enoxaparin 40 Mg/0.4 Ml Syringe) 40 mg SUBQ DAILY ZOILA Ondansetron HCl (Ondansetron 4 Mg/2 Ml Vial) 4 mg IVP Q6HR PRN PRN Reason: Nausea / Vomiting Ondansetron HCl (Ondansetron Odt 4 Mg Tablet) 4 mg TL Q6HR PRN PRN Reason: Nausea / Vomiting Objective - Vital Signs/Intake & Output Reviewed Vital Signs: Yes Vital Signs: Vital Signs x48h Temp Pulse Resp BP BP Pulse Ox O2 Flow Rate 12/30/23 08:00 106 H 30 H 170/90 H 93 5 12/30/23 07:30 104 H 28 H 166/104 H 94 5 12/30/23 07:15 104 H 30 H 161/97 H 93 5 12/30/23 07:00 112 H 30 H 167/106 H 93 5 12/30/23 06:45 115 H 39 H 181/81 H 93 5 12/30/23 06:40 104 H 31 H 156/96 H 95 5 12/30/23 06:34 107 H 25 H 150/78 H 94 5 12/30/23 06:30 101 H 35 H 151/82 H 92 5 12/30/23 06:25 37.7 C 110 H 34 H 151/78 H 93 5 12/30/23 06:20 180/74 H 12/30/23 06:00 119 H 24 180/74 H 92 5 06/29/24 05:00 37.7 C 123 H 37 H 179/118 H 92 5 12/30/23 04:00 37.9 C 119 H 30 H 172/99 H 93 5 12/30/23 03:00 37.9 C 117 H 29 H 186/99 H 93 5 12/30/23 01:59 37.4 C 113 H 27 H 170/81 H 94 5 12/30/23 01:00 115 H 30 H 177/90 H 93 5 Intake & Output: Intake & Output 12/27/23 12/28/23 12/29/23 12/30/23 23:59 23:59 23:59 23:59 Intake Total 3200 1250 Output Total 0 125 Balance 3200 1125 - Objective General Appearance: positive: No acute distress Eyes Bilateral: positive: Normal inspection Eyes: OU Other (white-yellow purulent discharge on eyelashes and lacrimal gland) ENT: positive: ENT inspection nml Neck: positive: Nml inspection Respiratory: positive: Chest non-tender, Rhonchi Cardiovascular: positive: Regular rate & rhythm Abdomen: positive: Non-tender Skin: positive: Color nml, Warm, Dry Extremities: positive: Non-tender, No pedal edema Neurologic/Psychiatric: positive: Mood/affect nml, Disoriented to place, Disoriented to time - Lab Results Fish Bones: 12/30/23 04:30 12/30/23 04:30 Other Labs: Lab Results x24hrs 12/30/23 12/30/23 12/30/23 Range/Units 04:30 04:30 04:30 WBC (4.8-10.8) x10^3/uL RBC (4.70-6.10) 10^6/uL Hgb (14.0-18.0) g/dL Hct (42.0-52.0) % MCV (80.0-94.0) fL MCH (27.0-31.0) pg MCHC (32.0-36.0) g/dL RDW (12.0-15.0) % Plt Count (130-450) 10^3/uL MPV (7.4-11.4) fL Neut # (Auto) (1.5-6.6) 10^3/uL Lymph # (Auto) (1.5-3.5) 10^3/uL [place] # (Auto) (0.0-1.0) 10^3/uL Eos # (Auto) (0.0-0.7) 10^3/uL Baso # (Auto) (0.0-0.1) 10^3/uL Absolute Nucleated RBC x10^3/uL Total Counted Band Neuts % (Manual) (0 - 10) % Reactive Lymphs % (Man) % Abnorm Lymph % (Manual) % Nucleated RBC % /100WBC Neutrophils # (Manual) (1.5-6.6) 10^3/uL Lymphocytes # (Manual) (1.5-3.5) 10^3/uL Monocytes # (Manual) (0.0-1.0) 10^3/uL Eosinophils # (Manual) (0-0.7) 10^3/uL Basophils # (Manual) (0-0.1) 10^3/uL Differential Comment Manual Slide Review Platelet Estimate (NORMAL) Platelet Morphology (NORMAL) RBC Morph Micro Appear (NORMAL) VBG pH 7.368 (7.31-7.41) Ionized Calcium 1.09 L (1.15-1.33) mmol/L Sodium 150 H (135-145) mmol/L Potassium 4.0 (3.5-4.5) mmol/L Chloride 114 H (101-111) mmol/L Carbon Dioxide 23 (21-32) mmol/L Anion Gap 13.0 (6-13) BUN 46 H (6-20) mg/dL Creatinine 1.6 H (0.6-1.3) mg/dL Estimated GFR (MDRD) 42 L (>89) Glucose 129 H (74-104) mg/dL Lactic Acid (0.5-2.2) mmol/L Calcium 8.5 (8.5-10.3) mg/dL Phosphorus 2.8 (2.5-5.0) mg/dL Magnesium 2.4 H (1.7-2.3) mg/dL Total Bilirubin (0.2-1.0) mg/dL AST (10-42) IU/L ALT (10-60) IU/L Alkaline Phosphatase (42-121) IU/L B-Natriuretic Peptide (5-100) pg/mL Total Protein (6.4-8.9) g/dL Albumin (3.2-5.5) g/dL Globulin (2.1-4.2) g/dL Albumin/Globulin Ratio (1.0-2.2) Lipase (11-82) U/L Urine Color Urine Clarity (CLEAR) Urine pH (5.0-7.5) PH Ur Specific [place] (1.002-1.030) Urine Protein (NEGATIVE) mg/dL Urine Glucose (UA) (NEGATIVE) mg/dL Urine Ketones (NEGATIVE) mg/dL Urine Occult Blood (NEGATIVE) Urine Nitrite (NEGATIVE) Urine Bilirubin (NEGATIVE) Urine Urobilinogen (NORMAL) E.U./dL Ur Leukocyte Esterase (NEGATIVE) Urine RBC (0-5) /HPF Urine WBC (0-3) /HPF Ur Squamous Epith Cells (<= Few) Urine Bacteria (None Seen) /HPF Urine Casts /LPF Ur Microscopic Review Urine Culture Comments Nasal Adenovirus (PCR) Nasal B. parapertussis DNA (PCR) Nasal Coronavir 229E PCR Nasal Coronavir HKU1 PCR Nasal Coronavir NL63 PCR Nasal Coronavir OC43 PCR Nasal Enterovir/Rhinovir PCR Nasal Influenza B PCR Nasal Influenza A PCR Nasal Parainfluen 1 PCR Nasal Parainfluen 2 PCR Nasal Parainfluen 3 PCR Nasal Parainfluen 4 PCR Nasal RSV (PCR) Nasal Screen MRSA (PCR) (NEGATIVE) Nasal B.pertussis DNA PCR Nasal C.pneumoniae (PCR) Beny Human Metapneumo PCR Nasal M.pneumoniae (PCR) Nasal SARS-CoV-2 (PCR) Last Dose Date [place] Last Dose Time UNKNOWN Random Vancomycin 9.5 ug/mL 12/30/23 12/29/23 12/29/23 Range/Units 04:30 17:35 17:03 WBC 6.1 (4.8-10.8) x10^3/uL RBC 3.82 L (4.70-6.10) 10^6/uL Hgb 11.7 L (14.0-18.0) g/dL Hct 37.5 L (42.0-52.0) % MCV 98.2 H (80.0-94.0) fL MCH 30.6 (27.0-31.0) pg MCHC 31.2 L (32.0-36.0) g/dL RDW 13.4 (12.0-15.0) % Plt Count 207 (130-450) 10^3/uL MPV 11.7 H (7.4-11.4) fL Neut # (Auto) Not Reportable (1.5-6.6) 10^3/uL Lymph # (Auto) Not Reportable (1.5-3.5) 10^3/uL [place] # (Auto) Not Reportable (0.0-1.0) 10^3/uL Eos # (Auto) Not Reportable (0.0-0.7) 10^3/uL Baso # (Auto) Not Reportable (0.0-0.1) 10^3/uL Absolute Nucleated RBC Not Reportable x10^3/uL Total Counted 100 Band Neuts % (Manual) 0 (0 - 10) % Reactive Lymphs % (Man) 11 % Abnorm Lymph % (Manual) 0 % Nucleated RBC % Not Reportable /100WBC Neutrophils # (Manual) 3.2 (1.5-6.6) 10^3/uL Lymphocytes # (Manual) 2.0 (1.5-3.5) 10^3/uL Monocytes # (Manual) 1.0 (0.0-1.0) 10^3/uL Eosinophils # (Manual) 0.0 (0-0.7) 10^3/uL Basophils # (Manual) 0.0 (0-0.1) 10^3/uL Differential Comment MANUAL DIFFERENTIAL Manual Slide Review Platelet Estimate NORMAL (130-450,000) (NORMAL) Platelet Morphology PLATELET C (NORMAL) RBC Morph Micro Appear (NORMAL) VBG pH (7.31-7.41) Ionized Calcium (1.15-1.33) mmol/L Sodium (135-145) mmol/L Potassium (3.5-4.5) mmol/L Chloride (101-111) mmol/L Carbon Dioxide (21-32) mmol/L Anion Gap (6-13) BUN (6-20) mg/dL Creatinine (0.6-1.3) mg/dL Estimated GFR (MDRD) (>89) Glucose (74-104) mg/dL Lactic Acid 1.8 (0.5-2.2) mmol/L Calcium (8.5-10.3) mg/dL Phosphorus (2.5-5.0) mg/dL Magnesium (1.7-2.3) mg/dL Total Bilirubin (0.2-1.0) mg/dL AST (10-42) IU/L ALT (10-60) IU/L Alkaline Phosphatase (42-121) IU/L B-Natriuretic Peptide (5-100) pg/mL Total Protein (6.4-8.9) g/dL Albumin (3.2-5.5) g/dL Globulin (2.1-4.2) g/dL Albumin/Globulin Ratio (1.0-2.2) Lipase (11-82) U/L Urine Color Urine Clarity (CLEAR) Urine pH (5.0-7.5) PH Ur Specific [place] (1.002-1.030) Urine Protein (NEGATIVE) mg/dL Urine Glucose (UA) (NEGATIVE) mg/dL Urine Ketones (NEGATIVE) mg/dL Urine Occult Blood (NEGATIVE) Urine Nitrite (NEGATIVE) Urine Bilirubin (NEGATIVE) Urine Urobilinogen (NORMAL) E.U./dL Ur Leukocyte Esterase (NEGATIVE) Urine RBC (0-5) /HPF Urine WBC (0-3) /HPF Ur Squamous Epith Cells (<= Few) Urine Bacteria (None Seen) /HPF Urine Casts /LPF Ur Microscopic Review Urine Culture Comments Nasal Adenovirus (PCR) Nasal B. parapertussis DNA (PCR) Nasal Coronavir 229E PCR Nasal Coronavir HKU1 PCR Nasal Coronavir NL63 PCR Nasal Coronavir OC43 PCR Nasal Enterovir/Rhinovir PCR Nasal Influenza B PCR Nasal Influenza A PCR Nasal Parainfluen 1 PCR Nasal Parainfluen 2 PCR Nasal Parainfluen 3 PCR Nasal Parainfluen 4 PCR Nasal RSV (PCR) Nasal Screen MRSA (PCR) NEGATIVE (NEGATIVE) Nasal B.pertussis DNA PCR Nasal C.pneumoniae (PCR) Beny Human Metapneumo PCR Nasal M.pneumoniae (PCR) Nasal SARS-CoV-2 (PCR) Last Dose Date Last Dose Time Random Vancomycin ug/mL 12/29/23 12/29/23 12/29/23 Range/Units 14:16 12:57 12:57 WBC (4.8-10.8) x10^3/uL RBC (4.70-6.10) 10^6/uL Hgb (14.0-18.0) g/dL Hct (42.0-52.0) % MCV (80.0-94.0) fL MCH (27.0-31.0) pg MCHC (32.0-36.0) g/dL RDW (12.0-15.0) % Plt Count (130-450) 10^3/uL MPV (7.4-11.4) fL Neut # (Auto) (1.5-6.6) 10^3/uL Lymph # (Auto) (1.5-3.5) 10^3/uL [place] # (Auto) (0.0-1.0) 10^3/uL Eos # (Auto) (0.0-0.7) 10^3/uL Baso # (Auto) (0.0-0.1) 10^3/uL Absolute Nucleated RBC x10^3/uL Total Counted Band Neuts % (Manual) (0 - 10) % Reactive Lymphs % (Man) % Abnorm Lymph % (Manual) % Nucleated RBC % /100WBC Neutrophils # (Manual) (1.5-6.6) 10^3/uL Lymphocytes # (Manual) (1.5-3.5) 10^3/uL Monocytes # (Manual) (0.0-1.0) 10^3/uL Eosinophils # (Manual) (0-0.7) 10^3/uL Basophils # (Manual) (0-0.1) 10^3/uL Differential Comment Manual Slide Review Platelet Estimate (NORMAL) Platelet Morphology (NORMAL) RBC Morph Micro Appear (NORMAL) VBG pH (7.31-7.41) Ionized Calcium (1.15-1.33) mmol/L Sodium (135-145) mmol/L Potassium (3.5-4.5) mmol/L Chloride (101-111) mmol/L Carbon Dioxide (21-32) mmol/L Anion Gap (6-13) BUN (6-20) mg/dL Creatinine (0.6-1.3) mg/dL Estimated GFR (MDRD) (>89) Glucose (74-104) mg/dL Lactic Acid 7.8 H* (0.5-2.2) mmol/L Calcium (8.5-10.3) mg/dL Phosphorus (2.5-5.0) mg/dL Magnesium (1.7-2.3) mg/dL Total Bilirubin (0.2-1.0) mg/dL AST (10-42) IU/L ALT (10-60) IU/L Alkaline Phosphatase (42-121) IU/L B-Natriuretic Peptide 750 H (5-100) pg/mL Total Protein (6.4-8.9) g/dL Albumin (3.2-5.5) g/dL Globulin (2.1-4.2) g/dL Albumin/Globulin Ratio (1.0-2.2) Lipase (11-82) U/L Urine Color DARK YELLOW Urine Clarity CLEAR (CLEAR) Urine pH 6.0 (5.0-7.5) PH Ur Specific [place] 1.025 (1.002-1.030) Urine Protein 100 H (NEGATIVE) mg/dL Urine Glucose (UA) NEGATIVE (NEGATIVE) mg/dL Urine Ketones NEGATIVE (NEGATIVE) mg/dL Urine Occult Blood MODERATE H (NEGATIVE) Urine Nitrite NEGATIVE (NEGATIVE) Urine Bilirubin NEGATIVE (NEGATIVE) Urine Urobilinogen 1 (NORMAL) (NORMAL) E.U./dL Ur Leukocyte Esterase NEGATIVE (NEGATIVE) Urine RBC 11-25 H (0-5) /HPF Urine WBC 4-5 (0-3) /HPF Ur Squamous Epith Cells NONE SEEN (<= Few) Urine Bacteria Rare (None Seen) /HPF Urine Casts 0-2 Cellular Casts /LPF Ur Microscopic Review INDICATED Urine Culture Comments NOT INDICATED Nasal Adenovirus (PCR) Nasal B. parapertussis DNA (PCR) Nasal Coronavir 229E PCR Nasal Coronavir HKU1 PCR Nasal Coronavir NL63 PCR Nasal Coronavir OC43 PCR Nasal Enterovir/Rhinovir PCR Nasal Influenza B PCR Nasal Influenza A PCR Nasal Parainfluen 1 PCR Nasal Parainfluen 2 PCR Nasal Parainfluen 3 PCR Nasal Parainfluen 4 PCR Nasal RSV (PCR) Nasal Screen MRSA (PCR) (NEGATIVE) Nasal B.pertussis DNA PCR Nasal C.pneumoniae (PCR) [place] Human Metapneumo PCR Nasal M.pneumoniae (PCR) Nasal SARS-CoV-2 (PCR) Last Dose Date Last Dose Time Random Vancomycin ug/mL 12/29/23 12/29/23 12/29/23 Range/Units 12:57 12:57 12:45 WBC 9.6 (4.8-10.8) x10^3/uL RBC 4.21 L (4.70-6.10) 10^6/uL Hgb 12.9 L (14.0-18.0) g/dL Hct 40.6 L (42.0-52.0) % MCV 96.4 H (80.0-94.0) fL MCH 30.6 (27.0-31.0) pg MCHC 31.8 L (32.0-36.0) g/dL RDW 13.1 (12.0-15.0) % Plt Count 251 (130-450) 10^3/uL MPV 11.7 H (7.4-11.4) fL Neut # (Auto) 7.8 H (1.5-6.6) 10^3/uL Lymph # (Auto) 1.4 L (1.5-3.5) 10^3/uL [place] # (Auto) 0.2 (0.0-1.0) 10^3/uL Eos # (Auto) 0.0 (0.0-0.7) 10^3/uL Baso # (Auto) 0.1 (0.0-0.1) 10^3/uL Absolute Nucleated RBC 0.05 x10^3/uL Total Counted Band Neuts % (Manual) (0 - 10) % Reactive Lymphs % (Man) % Abnorm Lymph % (Manual) % Nucleated RBC % 0.5 /100WBC Neutrophils # (Manual) (1.5-6.6) 10^3/uL Lymphocytes # (Manual) (1.5-3.5) 10^3/uL Monocytes # (Manual) (0.0-1.0) 10^3/uL Eosinophils # (Manual) (0-0.7) 10^3/uL Basophils # (Manual) (0-0.1) 10^3/uL Differential Comment Manual Slide Review Indicated Platelet Estimate (NORMAL) Platelet Morphology (NORMAL) RBC Morph Micro Appear 1+ ANISOCYTOSIS (NORMAL) VBG pH (7.31-7.41) Ionized Calcium (1.15-1.33) mmol/L Sodium 142 (135-145) mmol/L Potassium 3.7 (3.5-4.5) mmol/L Chloride 104 (101-111) mmol/L Carbon Dioxide 17 L (21-32) mmol/L Anion Gap 21.0 H (6-13) BUN 43 H (6-20) mg/dL Creatinine 2.2 H (0.6-1.3) mg/dL Estimated GFR (MDRD) 29 L (>89) Glucose 303 H (74-104) mg/dL Lactic Acid (0.5-2.2) mmol/L Calcium 9.1 (8.5-10.3) mg/dL Phosphorus (2.5-5.0) mg/dL Magnesium (1.7-2.3) mg/dL Total Bilirubin 1.1 H (0.2-1.0) mg/dL AST 24 (10-42) IU/L ALT 19 (10-60) IU/L Alkaline Phosphatase 43 (42-121) IU/L B-Natriuretic Peptide (5-100) pg/mL Total Protein 7.1 (6.4-8.9) g/dL Albumin 3.6 (3.2-5.5) g/dL Globulin 3.5 (2.1-4.2) g/dL Albumin/Globulin Ratio 1.0 (1.0-2.2) Lipase < 10 L (11-82) U/L Urine Color Urine Clarity (CLEAR) Urine pH (5.0-7.5) PH Ur Specific [place] (1.002-1.030) Urine Protein (NEGATIVE) mg/dL Urine Glucose (UA) (NEGATIVE) mg/dL Urine Ketones (NEGATIVE) mg/dL Urine Occult Blood (NEGATIVE) Urine Nitrite (NEGATIVE) Urine Bilirubin (NEGATIVE) Urine Urobilinogen (NORMAL) E.U./dL Ur Leukocyte Esterase (NEGATIVE) Urine RBC (0-5) /HPF Urine WBC (0-3) /HPF Ur Squamous Epith Cells (<= Few) Urine Bacteria (None Seen) /HPF Urine Casts /LPF Ur Microscopic Review Urine Culture Comments Nasal Adenovirus (PCR) NOT DETECTED Nasal B. parapertussis DNA (PCR) NOT DETECTED Nasal Coronavir 229E PCR NOT DETECTED Nasal Coronavir HKU1 PCR NOT DETECTED Nasal Coronavir NL63 PCR NOT DETECTED Nasal Coronavir OC43 PCR NOT DETECTED Nasal Enterovir/Rhinovir PCR NOT DETECTED Nasal Influenza B PCR NOT DETECTED Nasal Influenza A PCR NOT DETECTED Nasal Parainfluen 1 PCR NOT DETECTED Nasal Parainfluen 2 PCR NOT DETECTED Nasal Parainfluen 3 PCR DETECTED A Nasal Parainfluen 4 PCR NOT DETECTED Nasal RSV (PCR) NOT DETECTED Nasal Screen MRSA (PCR) (NEGATIVE) Nasal B.pertussis DNA PCR NOT DETECTED Nasal C.pneumoniae (PCR) NOT DETECTED [place] Human Metapneumo PCR NOT DETECTED Nasal M.pneumoniae (PCR) NOT DETECTED Nasal SARS-CoV-2 (PCR) NOT DETECTED Last Dose Date Last Dose Time Random Vancomycin ug/mL ABX Reporting Has patient been on IV antibiotics over the past 48 hours?: Yes Sepsis Event Note (H) - Evaluation Current Stage of Sepsis: Resolved Possible source of Sepsis: positive: Pulmonary Assessment/Plan - Problem List (1) Multifocal pneumonia Impression: Chest CT from 12/28 showed dependent consildation and groundglass concerning for aspiration or multifocal pneumonia with superimposed mild pulmonary edema. Nasal PCR positive for parainfluenza virus 3 on 12/25 and 12/28. Blood culture from 12/25 detected no growth. Respiratory culture ordered; pending collection and results. Continue IV Zosyn and Vancomycin. (2) Severe sepsis Impression: Resolved. Does not meet SIRS criteria. qSOFA score 1. Will continue to monitor. (3) Acute hypoxemic respiratory failure Impression: Improving. Currently on 5L of oxygen with nasal cannula; oxygen saturation at 93-94%. No respiratory distress; diffuse expiratory wheezing on exam. Continue dexamethasone 6mg IV daily. Ordered nebulizer treatments as needed. (4) Parainfluenza Impression: Nasal PCR positive for parainfluenza virus 3 on 12/25 and 12/28. Treating symptomatically with dexamtheasone 6mg IV daily and nebulizer treatments as needed. No current respiratory distress, will continue to monitor. (5) Hypertension Impression: Blood pressure elevated today in the 160-180s/80-100s. Will restart his clonidine 0.1mg twice daily. (6) Acute hypernatremia Impression: Likely due to saline infusions yesterday. Sodium level was 150 mmol/L at this morning. D5W ordered to correct this. (7) Lactic acidosis Impression: Resolved. Lactic acid level yesterday at 4pm was within normal limits at 1.8 mmol/L. (8) Dementia Impression: Restarting chronic medications and soft, bite sized diet. (9) Conjunctivitis Impression: White-yellow purulent discharge on eyelashes and lacrimal gland. Minor erythema of sclera bilaterally. Patient reports no pain, itching, or blurred vision. Considering allergic vs viral conjunctivitis. Limited opthalmic drop selection at the pharmacy - prescribed gentamicin opthalmic solution.
[2023-12-30] MEDS: ENOXAPARIN 40 MG/0.4 ML SYRINGE SUBQ SCH (08:25)
[2023-12-30] MEDS: DEXAMETHASONE 10 MG/ML VIAL IVP SCH (08:25)
[2023-12-30] MEDS: DEXTROSE 5% 1,000 ML IV SCH (08:33)
[2023-12-30] MEDS: cloNIDine 0.1 MG TABLET PO SCH (09:46)
[2023-12-30] MEDS: DIVALPROEX DR 125 MG TABLET PO SCH (09:46)
[2023-12-30] MEDS: GENTAMICIN 0.3% OPHTH DROPS EACHEYE SCH (12:01)
[2023-12-30] MEDS ORDERED: OFLOXACIN 0.3% OPHTH DROPS EACHEYE SCH (13:00)
[2023-12-30] MEDS ORDERED: GENTAMICIN 0.3% OPHTH DROPS EACHEYE SCH (21:00)
[2023-12-31 04:45] LABS: MAGNESIUM 2.3 mg/dL (1.7-2.3)
[2023-12-31 04:47] LABS: CALCIUM, IONIZED 1.06 mmol/L (1.15-1.33); VBG PH 7.491 (7.31-7.41)
[2023-12-31 04:51] LABS: PHOSPHORUS 2.6 mg/dL (2.5-5.0)
--- NOTE | 2023-12-31 07:45 | PROVIDER PROGRESS NOTE ---
Subjective - Prog Note Date Prog Note Date: 12/31/23 Prog Note Time: 07:43 - Subjective Pt reports feeling: Improved (Patient has dementia and has difficulty assessing his condition; however, he feels better overall and reports no difficulty breathing.) Current Medications - Current Medications Current Medications: Medications Acetaminophen (Acetaminophen) 1,000 mg in 100 mls @ 400 mls/hr IV Q6HR PRN PRN Reason: Moderate Pain (Level 4-6) Last Admin: 12/30/23 23:30 Dose: Infused Dexamethasone Sodium Phosphate (Dexamethasone 10 Mg/Ml Vial) 6 mg IVP DAILY [facility] Stop: 01/09/24 08:59 Last Admin: 12/30/23 08:25 Dose: 6 mg Ondansetron HCl (Ondansetron Odt 4 Mg Tablet) 4 mg TL Q6HR PRN PRN Reason: Nausea / Vomiting Piperacillin Sod/Tazobactam (Sod 3.375 gm/ Sodium Chloride) 100 mls @ 200 mls/hr IV Q6H [facility] Last Admin: 12/31/23 05:10 Dose: Infused Clonidine HCl (Clonidine 0.1 Mg Tablet) 0.1 mg PO BID [facility] Last Admin: 12/30/23 20:25 Dose: 0.1 mg Dextrose (D5w) 1,000 mls @ 100 mls/hr IV .Q10H [facility] Last Admin: 12/31/23 05:38 Dose: 100 mls/hr Divalproex Sodium (Divalproex Dr 125 Mg Tablet) 125 mg PO BID [facility] Last Admin: 12/30/23 20:25 Dose: 125 mg Enoxaparin Sodium (Enoxaparin 40 Mg/0.4 Ml Syringe) 40 mg SUBQ DAILY [facility] Last Admin: 12/30/23 08:25 Dose: 40 mg Gentamicin Sulfate (Gentamicin 0.3% Ophth Drops) 1 drops EACHEYE QID [facility] Last Admin: 12/30/23 20:34 Dose: 1 drops Ondansetron HCl (Ondansetron 4 Mg/2 Ml Vial) 4 mg IVP Q6HR PRN PRN Reason: Nausea / Vomiting Objective - Vital Signs/Intake & Output Reviewed Vital Signs: Yes Vital Signs: Vital Signs x48h Temp Pulse Resp BP Pulse Ox O2 Flow Rate 12/31/23 03:59 36.8 C 84 30 H 150/77 H 93 4 12/30/23 23:58 36.8 C 98 26 H 138/82 H 95 4 Intake & Output: Intake & Output 12/28/23 12/29/23 12/30/23 12/31/23 23:59 23:59 23:59 23:59 Intake Total 3450 3730 1300 Output Total 0 555 500 Balance 3450 3175 800 - Objective General Appearance: positive: No acute distress, Alert Eyes Bilateral: positive: Normal inspection, PERRL ENT: positive: ENT inspection nml Neck: positive: Nml inspection Respiratory: positive: Chest non-tender, No respiratory distress Cardiovascular: positive: Regular rate & rhythm Abdomen: positive: Non-tender Back: positive: Nml inspection Skin: positive: Color nml Extremities: positive: Non-tender Neurologic/Psychiatric: positive: Mood/affect nml, Disoriented to place, Disoriented to time - Lab Results Fish Bones: 12/30/23 04:30 12/31/23 04:30 Other Labs: Lab Results x24hrs 12/31/23 12/31/23 Range/Units 04:30 04:30 VBG pH 7.491 H (7.31-7.41) Ionized Calcium 1.06 L (1.15-1.33) mmol/L Phosphorus 2.6 (2.5-5.0) mg/dL Magnesium 2.3 (1.7-2.3) mg/dL ABX Reporting Has patient been on IV antibiotics over the past 48 hours?: Yes Sepsis Event Note (H) - Evaluation Current Stage of Sepsis: Resolved Possible source of Sepsis: positive: Pulmonary Assessment/Plan - Problem List (1) Multifocal pneumonia Impression: Patient seems to be improving and was more alert today. Down from 5L to 4L of oxygen with nasal cannula. Decreased expiratory wheezing on physical exam. Chest CT from 12/28 showed dependent consolidation and groundglass concerning for aspiration or multifocal pneumonia with superimposed mild pulmonary edema. Nasal PCR positive for parainfluenza virus 3 on 12/25 and 12/28. Blood culture from 12/25 detected no growth. Changing IV Zosyn to IV Unasyn. (2) Severe sepsis Impression: Resolved. Does not meet SIRS criteria. qSOFA score 1. Will continue to monitor. (3) Acute hypoxemic respiratory failure Impression: Improving. Currently on 4L of oxygen with nasal cannula; oxygen saturation at 91-93%. No respiratory distress; improving diffuse expiratory wheezes on exam. Continue dexamethasone 6mg IV daily. (4) Parainfluenza Impression: Nasal PCR positive for parainfluenza virus 3 on 12/25 and 12/28. Treating symptomatically with dexamtheasone 6mg IV daily. No current respiratory distress, will continue to monitor. (5) Hypertension Impression: Blood pressure elevated today in the 130-160s/70-80s. Continue clonidine 0.1mg twice daily. (6) Acute hypernatremia Impression: Sodium levels within normal limits this morning at 144 mmol/L. Discontinuing D5W. Will continue to monitor. (7) Lactic acidosis Impression: Resolved. Lactic acid level on 12/28 was within normal limits at 1.8 mmol/L. (8) Dementia Impression: Continuing chronic med. (9) Conjunctivitis Impression: Ddx includes bilateral allergic vs viral conjunctivitis. Continue gentamicin ophthalmic solution.
[2023-12-31 08:15] LABS: CALCIUM 8.5 mg/dL (8.5-10.3); CREATININE 1.4 mg/dL (0.6-1.3); POTASSIUM 3.7 mmol/L (3.5-4.5)
[2023-12-31 09:27] LABS: ESTIMATED AVERAGE GLUCOSE 114 mg/dL (70-100); HEMOGLOBIN A1c% 5.6 % (4.27-6.07)
[2023-12-31] MEDS ORDERED: QUEtiapine 100 MG TABLET PO PRN (16:57)
[2023-12-31] MEDS ORDERED: HALOPERIDOL 5 MG/ML VIAL IM PRN (17:11)
[2023-12-31] MEDS: AMPICILLIN/SULBACTAM 3 GM in SODIUM CHLORIDE 0.9% MINIBAG 100 ML IV SCH (17:14)
[2023-12-31] MEDS: QUEtiapine 100 MG TABLET PO SCH (17:33)
[2023-12-31] MEDS: LORazepam 0.5 MG TABLET PO PRN (17:33)
[2023-12-31] MEDS: GABAPENTIN 300 MG CAPSULE PO SCH (17:33)
[2023-12-31] MEDS: traZODone 50 MG TABLET PO SCH (21:30)
[2023-12-31] MEDS: LORazepam 0.5 MG TABLET PO SCH (21:32)
[2023-12-31] MEDS: ACETAMINOPHEN 500 MG TABLET PO SCH (21:44)
[2024-01-01 06:03] LABS: BASOPHILS # (AUTO) 0.1 10^3/uL (0.0-0.1); BASOPHILS % (AUTO) 0.6 %; HCT - HEMATOCRIT 34.9 % (42.0-52.0); HGB - HEMOGLOBIN 11.1 g/dL (14.0-18.0); MEAN CORPUSCULAR HEMOGLOBIN 30.9 pg (27.0-31.0); MEAN CORPUSCULAR HGB CONC 31.8 g/dL (32.0-36.0); MEAN CORPUSCULAR VOLUME 97.2 fL (80.0-94.0); MEAN PLATELET VOLUME 11.9 fL (7.4-11.4); MONOCYTES # (AUTO) 0.1 10^3/uL (0.0-1.0); MONOCYTES % (AUTO) 1.1 %; NEUTROPHILS # (AUTO) 10.7 10^3/uL (1.5-6.6); NRBC ABSOLUTE COUNT (AUTO) 0.03 x10^3/uL; NUCLEATED RED BLOOD CELLS AUTO 0.2 /100WBC; PLT - PLATELET COUNT 306 10^3/uL (130-450); RED BLOOD COUNT 3.59 10^6/uL (4.70-6.10); RED CELL DISTRIBUTION WIDTH 13.7 % (12.0-15.0); WHITE BLOOD COUNT 12.6 x10^3/uL (4.8-10.8)
[2024-01-01 06:18] LABS: CALCIUM 8.4 mg/dL (8.5-10.3); CREATININE 1.2 mg/dL (0.6-1.3); POTASSIUM 3.7 mmol/L (3.5-4.5)
[2024-01-01 06:40] LABS: SLIDE REVIEW? Indicated
[2024-01-01 07:09] LABS: PLATELET ESTIMATE, MANUAL INCREASED (>450,000) (NORMAL); PLATELET MORPHOLOGY NORMAL APPEARANCE (NORMAL)
[2024-01-01] MEDS: SERTRALINE 50 MG TABLET PO SCH (08:56)
[2024-01-01] MEDS ORDERED: ZINC OXIDE 12% OINT 57 GM TUBE TOP PRN (10:33)
--- NOTE | 2024-01-01 12:49 | PROVIDER PROGRESS NOTE ---
Assessment/Plan - Problem List (1) Severe sepsis Assessment/Plan: (1) Multifocal pneumonia Impression: --On 4L via [place]. Chest CT from 12/28 showed dependent consolidation and groundglass concerning for aspiration or multifocal pneumonia with superimposed mild pulmonary edema. Nasal PCR positive for parainfluenza virus 3 on 12/25 and 12/28. Blood culture from 12/25 detected no growth. Changing IV Zosyn to IV Unasyn. Anticipate 7 total days of antibiotics. --WBC did increase today. Will repeat CBC in AM. If it downtrends and he is stable on 3-4L of O2 he may be able to discharge as early as tomorrow. His mental status appears to be near his baseline. Resides at [facility] and was a DNR, comfort cares before admission. --Did have some diarrhea, C. diff PCR is currently pending. (2) Severe sepsis Impression: Resolved. Does not meet SIRS criteria. qSOFA score 1. Will continue to monitor. (3) Acute hypoxemic respiratory failure Impression: Improving. Currently on 3L of oxygen with nasal cannula; oxygen saturation at 91-93%. No respiratory distress; improving diffuse expiratory wheezes on exam. Continue dexamethasone 6mg IV daily. (4) Parainfluenza Impression: Nasal PCR positive for parainfluenza virus 3 on 12/25 and 12/28. Treating symptomatically with dexamtheasone 6mg IV daily. No current respiratory distress, will continue to monitor. (5) Hypertension Impression: Blood pressure elevated today in the 130-160s/70-80s. Continue clonidine 0.1mg twice daily. (6) Acute hypernatremia Impression: Sodium levels within normal limits this morning at 144 mmol/L. Discontinuing D5W. Will continue to monitor. (7) Lactic acidosis Impression: Resolved. Lactic acid level on 12/28 was within normal limits at 1.8 mmol/L. (8) Dementia Impression: Continuing chronic med. (9) Conjunctivitis Impression: Ddx includes bilateral allergic vs viral conjunctivitis. Continue gentamicin ophthalmic solution. - Current Meds Current Meds: Current Medications Generic Name Dose Route Start Last Admin Trade Name Freq PRN Reason Stop Dose Admin Acetaminophen 1,000 mg 12/31/23 22:00 01/01/24 05:40 Acetaminophen 500 Mg Tablet PO 1,000 mg TID ZOILA Administration Clonidine HCl 0.1 mg 12/30/23 09:00 01/01/24 08:56 Clonidine 0.1 Mg Tablet PO 0.1 mg BID ZOILA Administration Dexamethasone Sodium Phosphate 6 mg 12/30/23 09:00 01/01/24 08:55 Dexamethasone 10 Mg/Ml Vial IVP 01/09/24 08:59 6 mg DAILY ZOILA Administration Divalproex Sodium 125 mg 12/30/23 09:00 01/01/24 08:[address] 125 Mg Tablet PO 125 mg BID ZOILA Administration Enoxaparin Sodium 40 mg 12/30/23 09:00 01/01/24 08:55 Enoxaparin 40 Mg/0.4 Ml Syringe SUBQ 40 mg DAILY ZOILA Administration Gabapentin 300 mg 12/31/23 17:00 01/01/24 05:45 Gabapentin 300 Mg Capsule PO 300 mg TID ZOILA Administration Gentamicin Sulfate 1 drops 12/30/23 11:00 01/01/24 12:11 Gentamicin 0.3% Ophth Drops EACHEYE 1 drops QID ZOILA Administration Acetaminophen 1,000 mg in 100 mls @ 400 mls/hr 12/29/23 16:44 12/30/23 23:30 Acetaminophen IV Infused Q6HR PRN Infusion Moderate Pain (Level 4-6) Ampicillin Sodium/Sulbactam 100 mls @ 200 mls/hr 12/31/23 18:00 01/01/24 11:15 Sodium 3 gm/ Sodium Chloride IV 200 mls/hr Q6HR ZOILA Administration Lorazepam 0.5 mg 12/31/23 16:57 01/01/24 12:11 Lorazepam 0.5 Mg Tablet PO 0.5 mg DAILY PRN Administration Agitation Lorazepam 0.5 mg 12/31/23 21:00 12/31/23 21:32 Lorazepam 0.5 Mg Tablet PO Not Given HS ZOILA Quetiapine Fumarate 100 mg 12/31/23 17:00 01/01/24 05:45 Quetiapine 100 Mg Tablet PO 100 mg TID ZOILA Administration Sertraline HCl 100 mg 01/01/24 09:00 01/01/24 08:56 Sertraline 50 Mg Tablet PO 100 mg DAILY ZOILA Administration Sodium Chloride 10 ml 12/29/23 17:00 01/01/24 08:56 Sodium Chloride Flush 0.9% 10 Ml Syringe IVP 10 ml 0100,0900,1700 ZOILA Administration Sodium Chloride 10 ml 12/29/23 16:37 12/30/23 06:21 Sodium Chloride Flush 0.9% 10 Ml Syringe IVP 10 ml PRN PRN Administration NEEDED PER PROVIDER ORDERS Trazodone HCl 100 mg 12/31/23 21:00 12/31/23 21:30 Trazodone 50 Mg Tablet PO 100 mg HS ZOILA Administration - Lab Result Fish Bone Diagrams: 01/01/24 05:25 01/01/24 05:25 - Additional Planning My Orders: My Active Orders 12/31/23 16:57 LORazepam [Ativan] 0.5 mg PO DAILY PRN QUEtiapine [SEROquel] 100 mg PO BID PRN 12/31/23 17:00 Gabapentin [Neurontin] 300 mg PO TID QUEtiapine [SEROquel] 100 mg PO TID 12/31/23 17:11 Haloperidol Inj [Haldol Inj] 2 mg IM Q6H PRN 12/31/23 18:00 Ampicillin/Sulbactam [Unasyn] 3 gm Sodium Chloride 0.9% Minibag [Normal Saline 0.9% Minibag] 100 ml IV Q6HR 12/31/23 21:00 LORazepam [Ativan] 0.5 mg PO HS traZODone [Desyrel] 100 mg PO HS 12/31/23 22:00 Acetaminophen [Tylenol] 1,000 mg PO TID 01/01/24 C DIFF PCR Routine 01/01/24 09:00 Sertraline [Zoloft] 100 mg PO DAILY 01/01/24 11:16 Zinc Oxide 20% Oint [Zinc Oxide] 1 applic TOP PRN PRN 01/02/24 05:00 BMP - BASIC METABOLIC PANEL [CHEM] DAILYLAB CBC [CBC - COMP BLD CT W/AUTO DIFF] [HEME] DAILYLAB 01/03/24 05:00 BMP - BASIC METABOLIC PANEL [CHEM] DAILYLAB CBC [CBC - COMP BLD CT W/AUTO DIFF] [HEME] DAILYLAB 01/04/24 05:00 BMP - BASIC METABOLIC PANEL [CHEM] DAILYLAB CBC [CBC - COMP BLD CT W/AUTO DIFF] [HEME] DAILYLAB 01/05/24 05:00 BMP - BASIC METABOLIC PANEL [CHEM] DAILYLAB CBC [CBC - COMP BLD CT W/AUTO DIFF] [HEME] DAILYLAB Subjective - Subjective Patient Reports: Other (Mental status at baseline.) Objective Vital Signs: Vital Signs - 24 hr 12/31/23 12/31/23 12/31/23 16:43 16:51 17:00 Temperature 37.2 C 36.5 C Heart Rate [ Brachial] Heart Rate [ 80 95 Monitoring electrodes] Respiratory 26 H 26 H Rate Blood Pressure [Left Brachial artery] Blood Pressure 175/97 H 170/84 H 176/93 H [Right Brachial artery] O2 Saturation 96 95 93 If not protocol 4 3 4 : Oxygen Flow, liters/minute 12/31/23 12/31/23 01/01/24 19:28 21:00 01:00 Temperature 36.6 C 36.6 C Heart Rate [ Brachial] Heart Rate [ 84 57 L Monitoring electrodes] Respiratory 25 H 20 Rate Blood Pressure 152/92 H [Left Brachial artery] Blood Pressure 116/60 [Right Brachial artery] O2 Saturation 4 L 98 If not protocol 4 4 : Oxygen Flow, liters/minute 01/01/24 01/01/24 04:59 08:07 Temperature 36.6 C 36.8 C Heart Rate [ 62 Brachial] Heart Rate [ 60 Monitoring electrodes] Respiratory 24 24 Rate Blood Pressure [Left Brachial artery] Blood Pressure 141/74 H 138/71 H [Right Brachial artery] O2 Saturation 95 96 If not protocol 4 4 : Oxygen Flow, liters/minute Oxygen O2 Source Nasal cannula I&O (Last 24 Hrs): Intake and Output Totals x24h 12/30/23 12/31/23 01/01/24 23:59 23:59 23:59 Intake Total 3730 2310 927 Output Total 555 500 200 Balance 3175 1810 727 General: Alert, Oriented x3 Cardiovascular: Regular rate, Normal S1, Normal S2 Respiratory: Chest non-tender, No respiratory distress, Wheezes Abdomen: Normal bowel sounds, Soft, No tenderness, No hepatospenomegaly, No masses - Results Results: Laboratory Results WBC 12.6 x10^3/uL (4.8-10.8) H 01/01/24 05:25 RBC 3.59 10^6/uL (4.70-6.10) L 01/01/24 05:25 Hgb 11.1 g/dL (14.0-18.0) L 01/01/24 05:25 Hct 34.9 % (42.0-52.0) L 01/01/24 05:25 MCV 97.2 fL (80.0-94.0) H 01/01/24 05:25 MCH 30.9 pg (27.0-31.0) 01/01/24 05:25 MCHC 31.8 g/dL (32.0-36.0) L 01/01/24 05:25 RDW 13.7 % (12.0-15.0) 01/01/24 05:25 Plt Count 306 10^3/uL (130-450) 01/01/24 05:25 MPV 11.9 fL (7.4-11.4) H 01/01/24 05:25 Neut # (Auto) 10.7 10^3/uL (1.5-6.6) H 01/01/24 05:25 Lymph # (Auto) 1.0 10^3/uL (1.5-3.5) L 01/01/24 05:25 [place] # (Auto) 0.1 10^3/uL (0.0-1.0) 01/01/24 05:25 Eos # (Auto) 0.0 10^3/uL (0.0-0.7) 01/01/24 05:25 Baso # (Auto) 0.1 10^3/uL (0.0-0.1) 01/01/24 05:25 Absolute Nucleated RBC 0.03 x10^3/uL 01/01/24 05:25 Total Counted 100 12/30/23 04:30 Band Neuts % (Manual) 0 % (0-10) 12/30/23 04:30 Reactive Lymphs % (Man) 11 % 12/30/23 04:30 Abnorm Lymph % (Manual) 0 % 12/30/23 04:30 Nucleated RBC % 0.2 /100WBC 01/01/24 05:25 Neutrophils # (Manual) 3.2 10^3/uL (1.5-6.6) 12/30/23 04:30 Lymphocytes # (Manual) 2.0 10^3/uL (1.5-3.5) 12/30/23 04:30 Monocytes # (Manual) 1.0 10^3/uL (0.0-1.0) 12/30/23 04:30 Eosinophils # (Manual) 0.0 10^3/uL (0-0.7) 12/30/23 04:30 Basophils # (Manual) 0.0 10^3/uL (0-0.1) 12/30/23 04:30 Differential Comment MANUAL DIFFERENTIAL 12/30/23 04:30 Manual Slide Review Indicated 01/01/24 05:25 Platelet Estimate INCREASED (>450,000) (NORMAL) 01/01/24 05:25 Platelet Morphology NORMAL APPEARANCE (NORMAL) 01/01/24 05:25 RBC Morph Micro Appear 1+ ANISOCYTOSIS (NORMAL) 12/29/23 12:57 VBG pH 7.491 (7.31-7.41) H 12/31/23 04:30 Ionized Calcium 1.06 mmol/L (1.15-1.33) L 12/31/23 04:30 Sodium 145 mmol/L (135-145) 01/01/24 05:25 Potassium 3.7 mmol/L (3.5-4.5) 01/01/24 05:25 Chloride 110 mmol/L (101-111) 01/01/24 05:25 Carbon Dioxide 27 mmol/L (21-32) 01/01/24 05:25 Anion Gap 8.0 (6-13) 01/01/24 05:25 BUN 37 mg/dL (6-20) H 01/01/24 05:25 Creatinine 1.2 mg/dL (0.6-1.3) 01/01/24 05:25 Estimated GFR (MDRD) 59 (>89) L 01/01/24 05:25 Glucose 187 mg/dL (74-104) H 01/01/24 05:25 Estimat Average Glucose 114 mg/dL (70-100) H 12/31/23 04:30 Hemoglobin A1c % 5.6 % (4.27-6.07) 12/31/23 04:30 Lactic Acid 1.8 mmol/L (0.5-2.2) 12/29/23 17:03 Calcium 8.4 mg/dL (8.5-10.3) L 01/01/24 05:25 Phosphorus 2.6 mg/dL (2.5-5.0) 12/31/23 04:30 Magnesium 2.3 mg/dL (1.7-2.3) 12/31/23 04:30 Total Bilirubin 1.1 mg/dL (0.2-1.0) H 12/29/23 12:57 AST 24 IU/L (10-42) 12/29/23 12:57 ALT 19 IU/L (10-60) 12/29/23 12:57 Alkaline Phosphatase 43 IU/L (42-121) 12/29/23 12:57 B-Natriuretic Peptide 750 pg/mL (5-100) H 12/29/23 12:57 Total Protein 7.1 g/dL (6.4-8.9) 12/29/23 12:57 Albumin 3.6 g/dL (3.2-5.5) 12/29/23 12:57 Globulin 3.5 g/dL (2.1-4.2) 12/29/23 12:57 Albumin/Globulin Ratio 1.0 (1.0-2.2) 12/29/23 12:57 Lipase < 10 U/L (11-82) L 12/29/23 12:57 Urine Color DARK YELLOW 12/29/23 14:16 Urine Clarity CLEAR (CLEAR) 12/29/23 14:16 Urine pH 6.0 PH (5.0-7.5) 12/29/23 14:16 Ur Specific [place] 1.025 (1.002-1.030) 12/29/23 14:16 Urine Protein 100 mg/dL (NEGATIVE) H 12/29/23 14:16 Urine Glucose (UA) NEGATIVE mg/dL (NEGATIVE) 12/29/23 14:16 Urine Ketones NEGATIVE mg/dL (NEGATIVE) 12/29/23 14:16 Urine Occult Blood MODERATE (NEGATIVE) H 12/29/23 14:16 Urine Nitrite NEGATIVE (NEGATIVE) 12/29/23 14:16 Urine Bilirubin NEGATIVE (NEGATIVE) 12/29/23 14:16 Urine Urobilinogen 1 (NORMAL) E.U./dL (NORMAL) 12/29/23 14:16 Ur Leukocyte Esterase NEGATIVE (NEGATIVE) 12/29/23 14:16 Urine RBC 11-25 /HPF (0-5) H 12/29/23 14:16 Urine WBC 4-5 /HPF (0-3) 12/29/23 14:16 Ur Squamous Epith Cells NONE SEEN (<= Few) 12/29/23 14:16 Urine Bacteria Rare /HPF (None Seen) 12/29/23 14:16 Urine Casts 0-2 Hyaline Casts /LPF0-2 Cellular Casts /LPF 12/29/23 14:16 Urine Casts 0-2 Hyaline Casts /LPF0-2 Cellular Casts /LPF 12/29/23 14:16 Ur Microscopic Review INDICATED 12/29/23 14:16 Urine Culture Comments NOT INDICATED 12/29/23 14:16 Nasal Adenovirus (PCR) NOT DETECTED 12/29/23 12:45 Nasal B. parapertussis DNA (PCR) NOT DETECTED 12/29/23 12:45 Nasal Coronavir 229E PCR NOT DETECTED 12/29/23 12:45 Nasal Coronavir HKU1 PCR NOT DETECTED 12/29/23 12:45 Nasal Coronavir NL63 PCR NOT DETECTED 12/29/23 12:45 Nasal Coronavir OC43 PCR NOT DETECTED 12/29/23 12:45 Nasal Enterovir/Rhinovir PCR NOT DETECTED 12/29/23 12:45 Nasal Influenza B PCR NOT DETECTED 12/29/23 12:45 Nasal Influenza A PCR NOT DETECTED 12/29/23 12:45 Nasal Parainfluen 1 PCR NOT DETECTED 12/29/23 12:45 Nasal Parainfluen 2 PCR NOT DETECTED 12/29/23 12:45 Nasal Parainfluen 3 PCR DETECTED A 12/29/23 12:45 Nasal Parainfluen 4 PCR NOT DETECTED 12/29/23 12:45 Nasal RSV (PCR) NOT DETECTED 12/29/23 12:45 Nasal Screen MRSA (PCR) NEGATIVE (NEGATIVE) 12/29/23 17:35 Nasal B.pertussis DNA PCR NOT DETECTED 12/29/23 12:45 Nasal C.pneumoniae (PCR) NOT DETECTED 12/29/23 12:45 Beny Human Metapneumo PCR NOT DETECTED 12/29/23 12:45 Nasal M.pneumoniae (PCR) NOT DETECTED 12/29/23 12:45 Nasal SARS-CoV-2 (PCR) NOT DETECTED 12/29/23 12:45 Last Dose Date [place] 12/30/23 04:30 Last Dose Time UNKNOWN 12/30/23 04:30 Random Vancomycin 9.5 ug/mL 12/30/23 04:30 Sepsis Event Note (H) - Evaluation Current Stage of Sepsis: Resolved Possible source of Sepsis: positive: Pulmonary - Sepsis Criteria Sepsis Criteria: Recorded Temperature greater than 38.3C or Less than 36C, Recorded Heart Rate greater than 90 bpm, Metabolic: lactate > 2 mmol/L
[2024-01-01] MEDS: ZINC OXIDE 20% OINT 30 GM TUBE TOP PRN (14:35)
[2024-01-01] MEDS: VALPROATE 250 MG/5 ML SOLUTION UDC PO SCH (21:56)
[2024-01-02 06:00] LABS: BASOPHILS % (AUTO) 0.5 %; EOSINOPHILS % (AUTO) 0.1 %; HCT - HEMATOCRIT 34.8 % (42.0-52.0); HGB - HEMOGLOBIN 11.1 g/dL (14.0-18.0); LYMPHOCYTES % (AUTO) 12.4 %; MEAN CORPUSCULAR HEMOGLOBIN 31.2 pg (27.0-31.0); MEAN CORPUSCULAR HGB CONC 31.9 g/dL (32.0-36.0); MEAN CORPUSCULAR VOLUME 97.8 fL (80.0-94.0); MONOCYTES % (AUTO) 0.7 %; NEUTROPHILS % (AUTO) 79.3 %; PLT - PLATELET COUNT 382 10^3/uL (130-450); RED BLOOD COUNT 3.56 10^6/uL (4.70-6.10); RED CELL DISTRIBUTION WIDTH 13.7 % (12.0-15.0); WHITE BLOOD COUNT 14.2 x10^3/uL (4.8-10.8)
[2024-01-02 06:04] LABS: ABNORMAL LYMPHS % (MANUAL) 0 %
[2024-01-02 06:30] LABS: CALCIUM 8.5 mg/dL (8.5-10.3); CREATININE 1.1 mg/dL (0.6-1.3); POTASSIUM 3.5 mmol/L (3.5-4.5)
[2024-01-02 06:38] LABS: BAND NEUTROPHILS % (MANUAL) 14 %; DIFFERENTIAL COMMENT MANUAL DIFFERENTIAL; LYMPHOCYTES # (MANUAL) 1.4 10^3/uL (1.5-3.5); LYMPHOCYTES % (MANUAL) 10 %; METAMYELOCYTES % (MANUAL) 1 %; MONOCYTES # (MANUAL) 0.3 10^3/uL (0.0-1.0); MYELOCYTES % (MANUAL) 2 %; NEUTROPHILS # (MANUAL) 12.1 10^3/uL (1.5-6.6); PLATELET ESTIMATE, MANUAL NORMAL (130-450,000) (NORMAL); RBC MORPHOLOGY (MULTIPLE) NORMAL APPEARANCE (NORMAL)
--- NOTE | 2024-01-02 09:17 | PROVIDER PROGRESS NOTE ---
Assessment/Plan - Problem List (1) Multifocal pneumonia Assessment/Plan: Chest CT from 12/28 showed dependent consolidation and groundglass concerning for aspiration or multifocal pneumonia with superimposed mild pulmonary edema. Nasal PCR positive for parainfluenza virus 3 on 12/25 and 12/28. Blood culture from 12/25 detected no growth. Plan: Continue Unasyn 3 grams every 6 hours. (2) Severe sepsis Impression: Resolved. Does not meet SIRS criteria. qSOFA score 1. Will continue to monitor. (3) Acute hypoxemic respiratory failure Impression: He continues to require 4L by AR to maintain oxygen saturatin greater than 90%. Hypoxemic Respiratory falure most likley related to parainfluenza infection and possibly aspiration. Wean oxygen as tolerated. Decrease dexamethasone to 3 mg IV daily. (4) Parainfluenza Impression: Nasal PCR positive for parainfluenza virus 3 on 12/25 and 12/28. Continue supportive care (5) Hypertension Impression: Continue clonidine 0.1mg twice daily. (6) Acute hypernatremia Impression: Serum sodium is 148 and most likely secondary to advance of his alzheimer's disease. He is not asking for water or food. I discussed with his sister the poor prognosis of advance Alzheimer's disease. His mental status is unlikely to improve. Continue to monitor serum sodium. (7) Lactic acidosis Impression: Resolved. (8) Dementia Impression: Continuing treatment with Seroquel. He has advanced Alzheimer disease and mental staus is unlikley to improve. (9) Conjunctivitis Impression: Ddx includes bilateral allergic vs viral conjunctivitis. Continue gentamicin ophthalmic solution. (10) Goals of Care Impression: Discussed goals of care with his sister and guardian Jaja Pappas. Prior to admission he was residing at [facility]. He has a POLST that states he is DNR an wants only comfort measures. Discussed goals of care with his sister. We discussed the fact that his Alzhei cris's disease is unlikely to improve and recommend initiating of hospice/comfort care measure. After discusing with other family, she has decided to initiate comfort care measures. - Current Meds Current Meds: Current Medications Generic Name Dose Route Start Last Admin Trade Name Freq PRN Reason Stop Dose Admin Acetaminophen 1,000 mg 12/31/23 22:00 01/02/24 05:41 Acetaminophen 500 Mg Tablet PO 1,000 mg TID ZOILA Administration Clonidine HCl 0.1 mg 12/30/23 09:00 01/01/24 21:58 Clonidine 0.1 Mg Tablet PO 0.1 mg BID ZOILA Administration Dexamethasone Sodium Phosphate 6 mg 12/30/23 09:00 01/01/24 08:55 Dexamethasone 10 Mg/Ml Vial IVP 01/09/24 08:59 6 mg DAILY ZOILA Administration Enoxaparin Sodium 40 mg 12/30/23 09:00 01/01/24 08:55 Enoxaparin 40 Mg/0.4 Ml Syringe SUBQ 40 mg DAILY ZOILA Administration Gabapentin 300 mg 12/31/23 17:00 01/02/24 05:40 Gabapentin 300 Mg Capsule PO 300 mg TID ZOILA Administration Gentamicin Sulfate 1 drops 12/30/23 11:00 01/01/24 21:58 Gentamicin 0.3% Ophth Drops EACHEYE 1 drops QID ZOILA Administration Acetaminophen 1,000 mg in 100 mls @ 400 mls/hr 12/29/23 16:44 12/30/23 23:30 Acetaminophen IV Infused Q6HR PRN Infusion Moderate Pain (Level 4-6) Ampicillin Sodium/Sulbactam 100 mls @ 200 mls/hr 12/31/23 18:00 01/02/24 06:53 Sodium 3 gm/ Sodium Chloride IV Infused Q6HR ZOILA Infusion Lorazepam 0.5 mg 12/31/23 16:57 01/01/24 12:11 Lorazepam 0.5 Mg Tablet PO 0.5 mg DAILY PRN Administration Agitation Lorazepam 0.5 mg 12/31/23 21:00 01/01/24 21:57 Lorazepam 0.5 Mg Tablet PO 0.5 mg HS ZOILA Administration Multi-Ingredient Ointment 1 applic 01/01/24 11:16 01/01/24 14:35 Zinc Oxide 20% Oint 30 Gm Tube TOP 1 applic PRN PRN Administration Skin Care Quetiapine Fumarate 100 mg 12/31/23 17:00 01/02/24 06:52 Quetiapine 100 Mg Tablet PO 100 mg TID ZOILA Administration Sertraline HCl 100 mg 01/01/24 09:00 01/01/24 08:56 Sertraline 50 Mg Tablet PO 100 mg DAILY ZOILA Administration Sodium Chloride 10 ml 12/29/23 17:00 01/02/24 02:14 Sodium Chloride Flush 0.9% 10 Ml Syringe IVP 10 ml 0100,0900,1700 ZOILA Administration Sodium Chloride 10 ml 12/29/23 16:37 01/02/24 05:42 Sodium Chloride Flush 0.9% 10 Ml Syringe IVP 10 ml PRN PRN Administration NEEDED PER PROVIDER ORDERS Trazodone HCl 100 mg 12/31/23 21:00 01/01/24 21:57 Trazodone 50 Mg Tablet PO 100 mg HS ZOILA Administration Valproic Acid 85 mg 01/01/24 21:00 01/02/24 06:50 Valproate 250 Mg/5 Ml Solution Udc PO 85 mg TID ZOILA Administration - Lab Result Fish Bone Diagrams: 01/02/24 05:47 01/02/24 05:47 Subjective - Subjective Patient Reports: Other (Mr. Pacheco does repond to question but never appropriately and may speak jibberish at times. According to reports he is close to his baseline) Objective Vital Signs: Vital Signs - 24 hr 01/01/24 01/01/24 01/01/24 13:00 15:28 22:00 Temperature 93 C H 37.5 C 36.7 C Heart Rate [ 89 64 81 Brachial] Respiratory 24 20 20 Rate Blood Pressure 136/77 H 137/78 H 151/94 H [Right Brachial artery] O2 Saturation 93 95 92 If not protocol 4 4 4 : Oxygen Flow, liters/minute 01/01/24 01/02/24 01/02/24 22:40 05:46 07:39 Temperature 36.7 C 36.7 C Heart Rate [ 82 86 Brachial] Respiratory 18 18 Rate Blood Pressure 169/78 H 149/79 H [Right Brachial artery] O2 Saturation 90 L 92 If not protocol 4 4 4 : Oxygen Flow, liters/minute Oxygen O2 Source Nasal cannula I&O (Last 24 Hrs): Intake and Output Totals x24h 12/31/23 01/01/24 01/02/24 23:59 23:59 23:59 Intake Total 3310 2547.000 250 Output Total 500 525 Balance 2810 2022.000 250 General: No acute distress Neck: No JVD Neuro: Alert, Non Focal Cardiovascular: Other (Positive S1-S2 no extra heart sounds.) Respiratory: Other (Good air exchange in all lung galarza no wheezing no crackles) Abdomen: Other (Soft nontender nondistended positive bowel sounds.) Extremities: No cyanosis, No edema Skin: No rashes - Results Results: Laboratory Results WBC 14.2 x10^3/uL (4.8-10.8) H 01/02/24 05:47 RBC 3.56 10^6/uL (4.70-6.10) L 01/02/24 05:47 Hgb 11.1 g/dL (14.0-18.0) L 01/02/24 05:47 Hct 34.8 % (42.0-52.0) L 01/02/24 05:47 MCV 97.8 fL (80.0-94.0) H 01/02/24 05:47 MCH 31.2 pg (27.0-31.0) H 01/02/24 05:47 MCHC 31.9 g/dL (32.0-36.0) L 01/02/24 05:47 RDW 13.7 % (12.0-15.0) 01/02/24 05:47 Plt Count 382 10^3/uL (130-450) 01/02/24 05:47 MPV 11.0 fL (7.4-11.4) 01/02/24 05:47 Neut # (Auto) Not Reportable 01/02/24 05:47 Lymph # (Auto) Not Reportable 01/02/24 05:47 [place] # (Auto) Not Reportable 01/02/24 05:47 Eos # (Auto) Not Reportable 01/02/24 05:47 Baso # (Auto) Not Reportable 01/02/24 05:47 Absolute Nucleated RBC Not Reportable 01/02/24 05:47 Total Counted 100 01/02/24 05:47 Band Neuts % (Manual) 14 % (0-10) H 01/02/24 05:47 Reactive Lymphs % (Man) 11 % 12/30/23 04:30 Abnorm Lymph % (Manual) 0 % 01/02/24 05:47 Metamyelocytes % 1 % (-0) H 01/02/24 05:47 Myelocytes % 2 % (-0) H 01/02/24 05:47 Nucleated RBC % Not Reportable 01/02/24 05:47 Neutrophils # (Manual) 12.1 10^3/uL (1.5-6.6) H 01/02/24 05:47 Lymphocytes # (Manual) 1.4 10^3/uL (1.5-3.5) L 01/02/24 05:47 Monocytes # (Manual) 0.3 10^3/uL (0.0-1.0) 01/02/24 05:47 Eosinophils # (Manual) 0.0 10^3/uL (0-0.7) 01/02/24 05:47 Basophils # (Manual) 0.0 10^3/uL (0-0.1) 01/02/24 05:47 Differential Comment MANUAL DIFFERENTIAL 01/02/24 05:47 Manual Slide Review Indicated 01/01/24 05:25 Platelet Estimate NORMAL (130-450,000) (NORMAL) 01/02/24 05:47 Platelet Morphology NORMAL APPEARANCE (NORMAL) 01/01/24 05:25 RBC Morph Micro Appear NORMAL APPEARANCE (NORMAL) 01/02/24 05:47 VBG pH 7.491 (7.31-7.41) H 12/31/23 04:30 Ionized Calcium 1.06 mmol/L (1.15-1.33) L 12/31/23 04:30 Sodium 148 mmol/L (135-145) H 01/02/24 05:47 Potassium 3.5 mmol/L (3.5-4.5) 01/02/24 05:47 Chloride 110 mmol/L (101-111) 01/02/24 05:47 Carbon Dioxide 32 mmol/L (21-32) 01/02/24 05:47 Anion Gap 6.0 (6-13) 01/02/24 05:47 BUN 33 mg/dL (6-20) H 01/02/24 05:47 Creatinine 1.1 mg/dL (0.6-1.3) 01/02/24 05:47 Estimated GFR (MDRD) 65 (>89) L 01/02/24 05:47 Glucose 163 mg/dL (74-104) H 01/02/24 05:47 Estimat Average Glucose 114 mg/dL (70-100) H 12/31/23 04:30 Hemoglobin A1c % 5.6 % (4.27-6.07) 12/31/23 04:30 Lactic Acid 1.8 mmol/L (0.5-2.2) 12/29/23 17:03 Calcium 8.5 mg/dL (8.5-10.3) 01/02/24 05:47 Phosphorus 2.6 mg/dL (2.5-5.0) 12/31/23 04:30 Magnesium 2.3 mg/dL (1.7-2.3) 12/31/23 04:30 Total Bilirubin 1.1 mg/dL (0.2-1.0) H 12/29/23 12:57 AST 24 IU/L (10-42) 12/29/23 12:57 ALT 19 IU/L (10-60) 12/29/23 12:57 Alkaline Phosphatase 43 IU/L (42-121) 12/29/23 12:57 B-Natriuretic Peptide 750 pg/mL (5-100) H 12/29/23 12:57 Total Protein 7.1 g/dL (6.4-8.9) 12/29/23 12:57 Albumin 3.6 g/dL (3.2-5.5) 12/29/23 12:57 Globulin 3.5 g/dL (2.1-4.2) 12/29/23 12:57 Albumin/Globulin Ratio 1.0 (1.0-2.2) 12/29/23 12:57 Lipase < 10 U/L (11-82) L 12/29/23 12:57 Urine Color DARK YELLOW 12/29/23 14:16 Urine Clarity CLEAR (CLEAR) 12/29/23 14:16 Urine pH 6.0 PH (5.0-7.5) 12/29/23 14:16 Ur Specific [place] 1.025 (1.002-1.030) 12/29/23 14:16 Urine Protein 100 mg/dL (NEGATIVE) H 12/29/23 14:16 Urine Glucose (UA) NEGATIVE mg/dL (NEGATIVE) 12/29/23 14:16 Urine Ketones NEGATIVE mg/dL (NEGATIVE) 12/29/23 14:16 Urine Occult Blood MODERATE (NEGATIVE) H 12/29/23 14:16 Urine Nitrite NEGATIVE (NEGATIVE) 12/29/23 14:16 Urine Bilirubin NEGATIVE (NEGATIVE) 12/29/23 14:16 Urine Urobilinogen 1 (NORMAL) E.U./dL (NORMAL) 12/29/23 14:16 Ur Leukocyte Esterase NEGATIVE (NEGATIVE) 12/29/23 14:16 Urine RBC 11-25 /HPF (0-5) H 12/29/23 14:16 Urine WBC 4-5 /HPF (0-3) 12/29/23 14:16 Ur Squamous Epith Cells NONE SEEN (<= Few) 12/29/23 14:16 Urine Bacteria Rare /HPF (None Seen) 12/29/23 14:16 Urine Casts 0-2 Hyaline Casts /LPF0-2 Cellular Casts /LPF 12/29/23 14:16 Urine Casts 0-2 Hyaline Casts /LPF0-2 Cellular Casts /LPF 12/29/23 14:16 Ur Microscopic Review INDICATED 12/29/23 14:16 Urine Culture Comments NOT INDICATED 12/29/23 14:16 Nasal Adenovirus (PCR) NOT DETECTED 12/29/23 12:45 Nasal B. parapertussis DNA (PCR) NOT DETECTED 12/29/23 12:45 Nasal Coronavir 229E PCR NOT DETECTED 12/29/23 12:45 Nasal Coronavir HKU1 PCR NOT DETECTED 12/29/23 12:45 Nasal Coronavir NL63 PCR NOT DETECTED 12/29/23 12:45 Nasal Coronavir OC43 PCR NOT DETECTED 12/29/23 12:45 Nasal Enterovir/Rhinovir PCR NOT DETECTED 12/29/23 12:45 Nasal Influenza B PCR NOT DETECTED 12/29/23 12:45 Nasal Influenza A PCR NOT DETECTED 12/29/23 12:45 Nasal Parainfluen 1 PCR NOT DETECTED 12/29/23 12:45 Nasal Parainfluen 2 PCR NOT DETECTED 12/29/23 12:45 Nasal Parainfluen 3 PCR DETECTED A 12/29/23 12:45 Nasal Parainfluen 4 PCR NOT DETECTED 12/29/23 12:45 Nasal RSV (PCR) NOT DETECTED 12/29/23 12:45 Nasal Screen MRSA (PCR) NEGATIVE (NEGATIVE) 12/29/23 17:35 Nasal B.pertussis DNA PCR NOT DETECTED 12/29/23 12:45 Nasal C.pneumoniae (PCR) NOT DETECTED 12/29/23 12:45 Beny Human Metapneumo PCR NOT DETECTED 12/29/23 12:45 Nasal M.pneumoniae (PCR) NOT DETECTED 12/29/23 12:45 Nasal SARS-CoV-2 (PCR) NOT DETECTED 12/29/23 12:45 Stl C. diff Tox B Gene NEGATIVE (NEGATIVE) 01/01/24 13:25 Last Dose Date UKNOWN 12/30/23 04:30 Last Dose Time UNKNOWN 12/30/23 04:30 Random Vancomycin 9.5 ug/mL 12/30/23 04:30 Sepsis Event Note (H) - Evaluation Current Stage of Sepsis: Resolved Possible source of Sepsis: positive: Pulmonary - Sepsis Criteria Sepsis Criteria: Recorded Temperature greater than 38.3C or Less than 36C, Recorded Heart Rate greater than 90 bpm, Metabolic: lactate > 2 mmol/L
[2024-01-02] MEDS: MULTIVITAMIN TABLET PO SCH (10:07)
[2024-01-02] MEDS ORDERED: ACETAMINOPHEN 500 MG TABLET PO PRN (11:21)
[2024-01-02] MEDS ORDERED: MORPHINE 10 MG/ML VIAL SUBQ PRN (17:40)
[2024-01-02] MEDS ORDERED: GLYCOPYRROLATE 1 MG/5 ML VIAL SUBQ PRN (17:40)
[2024-01-03] MEDS: DEXAMETHASONE 10 MG/ML VIAL IVP SCH (08:30)
[2024-01-03] MEDS: VALPROATE 250 MG/5 ML SOLUTION UDC PO SCH (09:28)
[2024-01-03] MEDS: MORPHINE 2 MG/ML CARPUJECT IVP PRN (10:42)
--- NOTE | 2024-01-03 21:06 | PROVIDER PROGRESS NOTE ---
Assessment/Plan - Problem List (1) Multifocal pneumonia Assessment/Plan: Chest CT from 12/28 showed dependent consolidation and groundglass concerning for aspiration or multifocal pneumonia with superimposed mild pulmonary edema. Nasal PCR positive for parainfluenza virus 3 on 12/25 and 12/28. Blood culture from 12/25 detected no growth. Plan: All antibiotics discontinued. Patient now hospice care. (2) Severe sepsis Impression: Resolved. Does not meet SIRS criteria. qSOFA score 1. (3) Acute hypoxemic respiratory failure Impression: Dexamethasone discontinued. Patient has advanced Alzheimer's disease and does not complain of shortness of breath off of oxygen. He is not benefiting from oxygen and after discussion with his sister, oxygen has been discontinued. (4) Parainfluenza Impression: Nasal PCR positive for parainfluenza virus 3 on 12/25 and 12/28. Patient is now hospice care (5) Hypertension Impression: Discontinue clonidine. (6) Acute hypernatremia Impression: Serum sodium is 148 and most likely secondary to advance of his alzheimer's disease. He is not asking for water or food. I discussed with his sister the poor prognosis of advance Alzheimer's disease. His mental status is unlikely to improve. (7) Lactic acidosis Impression: Resolved. (8) Dementia Impression: Continuing treatment with Seroquel. He has advanced Alzheimer disease and mental staus is unlikley to improve. (9) Conjunctivitis Impression: Gentamicin eyedrops discontinued (10) Goals of Care Impression: Discussed goals of care with his sister and guardian Jaja Pappas. Prior to admission he was residing at [facility]. He has a POLST that states he is DNR an wants only comfort measures. Discussed goals of care with his sister. We discussed the fact that his Alzheimer's disease is unlikely to improve and recommend initiating of hospice/comfort care measure. Patient is set to go to [facility] tomorrow with hospice care. - Current Meds Current Meds: Current Medications Generic Name Dose Route Start Last Admin Trade Name Freq PRN Reason Stop Dose Admin Clonidine HCl 0.1 mg 12/30/23 09:00 01/03/24 08:30 Clonidine 0.1 Mg Tablet PO 0.1 mg BID ZOILA Administration Gentamicin Sulfate 1 drops 12/30/23 11:00 01/03/24 13:46 Gentamicin 0.3% Ophth Drops EACHEYE 1 drops QID ZOILA Administration Lorazepam 0.5 mg 12/31/23 16:57 01/03/24 11:58 Lorazepam 0.5 Mg Tablet PO 0.5 mg DAILY PRN Administration Agitation Lorazepam 0.5 mg 12/31/23 21:00 01/02/24 22:41 Lorazepam 0.5 Mg Tablet PO 0.5 mg HS ZOILA Administration Morphine Sulfate 2 mg 01/02/24 17:40 01/03/24 10:42 Morphine 2 Mg/Ml Carpuject IVP 2 mg Q2HR PRN Administration Severe Pain (Level 7-10)/ SOA Multi-Ingredient Ointment 1 applic 01/01/24 11:16 01/01/24 14:35 Zinc Oxide 20% Oint 30 Gm Tube TOP 1 applic PRN PRN Administration Skin Care Quetiapine Fumarate 100 mg 12/31/23 17:00 01/03/24 13:46 Quetiapine 100 Mg Tablet PO 100 mg TID ZOILA Administration Sertraline HCl 100 mg 01/01/24 09:00 01/03/24 08:29 Sertraline 50 Mg Tablet PO 100 mg DAILY ZOILA Administration Sodium Chloride 10 ml 12/29/23 17:00 01/03/24 09:28 Sodium Chloride Flush 0.9% 10 Ml Syringe IVP 10 ml 0100,0900,1700 ZOILA Administration Sodium Chloride 10 ml 12/29/23 16:37 01/02/24 05:42 Sodium Chloride Flush 0.9% 10 Ml Syringe IVP 10 ml PRN PRN Administration NEEDED PER PROVIDER ORDERS Valproic Acid 125 mg 01/03/24 09:00 01/03/24 09:28 Valproate 250 Mg/5 Ml Solution Udc PO 125 mg BID ZOILA Administration - Lab Result Fish Bone Diagrams: 01/02/24 05:47 01/02/24 05:47 - Additional Planning My Orders: My Active Orders 01/03/24 Hospice Referral (Coordinate Admission by Hospice Office Staff) [CONS] Routine Subjective - Subjective Patient Reports: Resting Comfortably, Other (No significant change of the last 24 hours. Speech is unintelligible frequently and word salad.) Objective Vital Signs: Vital Signs - 24 hr 01/03/24 01/03/24 01/03/24 01:33 07:51 07:59 Temperature 37.4 C 36.6 C Heart Rate [ 96 76 Brachial] Respiratory 16 14 Rate Blood Pressure 175/84 H [Left Brachial artery] Blood Pressure 133/97 H [Right Brachial artery] O2 Saturation 90 L 92 If not protocol 4 4 6 : Oxygen Flow, liters/minute 01/03/24 10:28 Temperature Heart Rate [ Brachial] Respiratory Rate Blood Pressure [Left Brachial artery] Blood Pressure [Right Brachial artery] O2 Saturation 86 L If not protocol 2 : Oxygen Flow, liters/minute Oxygen O2 Source Nasal cannula I&O (Last 24 Hrs): Intake and Output Totals x24h 01/01/24 01/02/24 01/03/24 23:59 23:59 23:59 Intake Total 2547.000 1350 225 Output Total 525 100 Balance 2021.000 1250 225 General: Alert, No acute distress HEENT: Atraumatic Neck: No JVD Neuro: Non Focal Cardiovascular: Other (Positive S1-S2 no extra heart sounds.) Respiratory: Other (Good air exchange in all lung galarza no wheezing no crack les.) Abdomen: Other (Soft nontender nondistended positive bowel sounds.) Extremities: No cyanosis Skin: No rashes - Results Results: Laboratory Results WBC 14.2 x10^3/uL (4.8-10.8) H 01/02/24 05:47 RBC 3.56 10^6/uL (4.70-6.10) L 01/02/24 05:47 Hgb 11.1 g/dL (14.0-18.0) L 01/02/24 05:47 Hct 34.8 % (42.0-52.0) L 01/02/24 05:47 MCV 97.8 fL (80.0-94.0) H 01/02/24 05:47 MCH 31.2 pg (27.0-31.0) H 01/02/24 05:47 MCHC 31.9 g/dL (32.0-36.0) L 01/02/24 05:47 RDW 13.7 % (12.0-15.0) 01/02/24 05:47 Plt Count 382 10^3/uL (130-450) 01/02/24 05:47 MPV 11.0 fL (7.4-11.4) 01/02/24 05:47 Neut # (Auto) Not Reportable 01/02/24 05:47 Lymph # (Auto) Not Reportable 01/02/24 05:47 [place] # (Auto) Not Reportable 01/02/24 05:47 Eos # (Auto) Not Reportable 01/02/24 05:47 Baso # (Auto) Not Reportable 01/02/24 05:47 Absolute Nucleated RBC Not Reportable 01/02/24 05:47 Total Counted 100 01/02/24 05:47 Band Neuts % (Manual) 14 % (0-10) H 01/02/24 05:47 Reactive Lymphs % (Man) 11 % 12/30/23 04:30 Abnorm Lymph % (Manual) 0 % 01/02/24 05:47 Metamyelocytes % 1 % (-0) H 01/02/24 05:47 Myelocytes % 2 % (-0) H 01/02/24 05:47 Nucleated RBC % Not Reportable 01/02/24 05:47 Neutrophils # (Manual) 12.1 10^3/uL (1.5-6.6) H 01/02/24 05:47 Lymphocytes # (Manual) 1.4 10^3/uL (1.5-3.5) L 01/02/24 05:47 Monocytes # (Manual) 0.3 10^3/uL (0.0-1.0) 01/02/24 05:47 Eosinophils # (Manual) 0.0 10^3/uL (0-0.7) 01/02/24 05:47 Basophils # (Manual) 0.0 10^3/uL (0-0.1) 01/02/24 05:47 Differential Comment MANUAL DIFFERENTIAL 01/02/24 05:47 Manual Slide Review Indicated 01/01/24 05:25 Platelet Estimate NORMAL (130-450,000) (NORMAL) 01/02/24 05:47 Platelet Morphology NORMAL APPEARANCE (NORMAL) 01/01/24 05:25 RBC Morph Micro Appear NORMAL APPEARANCE (NORMAL) 01/02/24 05:47 VBG pH 7.491 (7.31-7.41) H 12/31/23 04:30 Ionized Calcium 1.06 mmol/L (1.15-1.33) L 12/31/23 04:30 Sodium 148 mmol/L (135-145) H 01/02/24 05:47 Potassium 3.5 mmol/L (3.5-4.5) 01/02/24 05:47 Chloride 110 mmol/L (101-111) 01/02/24 05:47 Carbon Dioxide 32 mmol/L (21-32) 01/02/24 05:47 Anion Gap 6.0 (6-13) 01/02/24 05:47 BUN 33 mg/dL (6-20) H 01/02/24 05:47 Creatinine 1.1 mg/dL (0.6-1.3) 01/02/24 05:47 Estimated GFR (MDRD) 65 (>89) L 01/02/24 05:47 Glucose 163 mg/dL (74-104) H 01/02/24 05:47 Estimat Average Glucose 114 mg/dL (70-100) H 12/31/23 04:30 Hemoglobin A1c % 5.6 % (4.27-6.07) 12/31/23 04:30 Lactic Acid 1.8 mmol/L (0.5-2.2) 12/29/23 17:03 Calcium 8.5 mg/dL (8.5-10.3) 01/02/24 05:47 Phosphorus 2.6 mg/dL (2.5-5.0) 12/31/23 04:30 Magnesium 2.3 mg/dL (1.7-2.3) 12/31/23 04:30 Total Bilirubin 1.1 mg/dL (0.2-1.0) H 12/29/23 12:57 AST 24 IU/L (10-42) 12/29/23 12:57 ALT 19 IU/L (10-60) 12/29/23 12:57 Alkaline Phosphatase 43 IU/L (42-121) 12/29/23 12:57 B-Natriuretic Peptide 750 pg/mL (5-100) H 12/29/23 12:57 Total Protein 7.1 g/dL (6.4-8.9) 12/29/23 12:57 Albumin 3.6 g/dL (3.2-5.5) 12/29/23 12:57 Globulin 3.5 g/dL (2.1-4.2) 12/29/23 12:57 Albumin/Globulin Ratio 1.0 (1.0-2.2) 12/29/23 12:57 Lipase < 10 U/L (11-82) L 12/29/23 12:57 Urine Color DARK YELLOW 12/29/23 14:16 Urine Clarity CLEAR (CLEAR) 12/29/23 14:16 Urine pH 6.0 PH (5.0-7.5) 12/29/23 14:16 Ur Specific [place] 1.025 (1.002-1.030) 12/29/23 14:16 Urine Protein 100 mg/dL (NEGATIVE) H 12/29/23 14:16 Urine Glucose (UA) NEGATIVE mg/dL (NEGATIVE) 12/29/23 14:16 Urine Ketones NEGATIVE mg/dL (NEGATIVE) 12/29/23 14:16 Urine Occult Blood MODERATE (NEGATIVE) H 12/29/23 14:16 Urine Nitrite NEGATIVE (NEGATIVE) 12/29/23 14:16 Urine Bilirubin NEGATIVE (NEGATIVE) 12/29/23 14:16 Urine Urobilinogen 1 (NORMAL) E.U./dL (NORMAL) 12/29/23 14:16 Ur Leukocyte Esterase NEGATIVE (NEGATIVE) 12/29/23 14:16 Urine RBC 11-25 /HPF (0-5) H 12/29/23 14:16 Urine WBC 4-5 /HPF (0-3) 12/29/23 14:16 Ur Squamous Epith Cells NONE SEEN (<= Few) 12/29/23 14:16 Urine Bacteria Rare /HPF (None Seen) 12/29/23 14:16 Urine Casts 0-2 Hyaline Casts /LPF0-2 Cellular Casts /LPF 12/29/23 14:16 Urine Casts 0-2 Hyaline Casts /LPF0-2 Cellular Casts /LPF 12/29/23 14:16 Ur Microscopic Review INDICATED 12/29/23 14:16 Urine Culture Comments NOT INDICATED 12/29/23 14:16 Nasal Adenovirus (PCR) NOT DETECTED 12/29/23 12:45 Nasal B. parapertussis DNA (PCR) NOT DETECTED 12/29/23 12:45 Nasal Coronavir 229E PCR NOT DETECTED 12/29/23 12:45 Nasal Coronavir HKU1 PCR NOT DETECTED 12/29/23 12:45 Nasal Coronavir NL63 PCR NOT DETECTED 12/29/23 12:45 Nasal Coronavir OC43 PCR NOT DETECTED 12/29/23 12:45 Nasal Enterovir/Rhinovir PCR NOT DETECTED 12/29/23 12:45 Nasal Influenza B PCR NOT DETECTED 12/29/23 12:45 Nasal Influenza A PCR NOT DETECTED 12/29/23 12:45 Nasal Parainfluen 1 PCR NOT DETECTED 12/29/23 12:45 Nasal Parainfluen 2 PCR NOT DETECTED 12/29/23 12:45 Nasal Parainfluen 3 PCR DETECTED A 12/29/23 12:45 Nasal Parainfluen 4 PCR NOT DETECTED 12/29/23 12:45 Nasal RSV (PCR) NOT DETECTED 12/29/23 12:45 Nasal Screen MRSA (PCR) NEGATIVE (NEGATIVE) 12/29/23 17:35 Nasal B.pertussis DNA PCR NOT DETECTED 12/29/23 12:45 Nasal C.pneumoniae (PCR) NOT DETECTED 12/29/23 12:45 Beny Human Metapneumo PCR NOT DETECTED 12/29/23 12:45 Nasal M.pneumoniae (PCR) NOT DETECTED 12/29/23 12:45 Nasal SARS-CoV-2 (PCR) NOT DETECTED 12/29/23 12:45 Stl C. diff Tox B Gene NEGATIVE (NEGATIVE) 01/01/24 13:25 Last Dose Date [place] 12/30/23 04:30 Last Dose Time UNKNOWN 12/30/23 04:30 Random Vancomycin 9.5 ug/mL 12/30/23 04:30 Sepsis Event Note (H) - Evaluation Current Stage of Sepsis: Resolved Possible source of Sepsis: positive: Pulmonary - Sepsis Criteria Sepsis Criteria: Recorded Temperature greater than 38.3C or Less than 36C, Recorded Heart Rate greater than 90 bpm, Metabolic: lactate > 2 mmol/L
--- NOTE | 2024-01-04 08:35 | DISCHARGE SUMMARY ---
Discharge Summary Admit Date: 12/29/23 Discharge Date: 01/04/24 Discharging Provider: Berny Gonzalez MD Primary Care Provider: Elmer Stroud Code Status: Do Not Attempt Resuscitation Condition at Discharge: Stable Discharge Disposition: 50 Hospice/Home DC/Xfer Discharge Facility Name: [facility] - DIAGNOSES Admission Diagnoses: (1) Severe sepsis (2) Lactic acidosis (3) Parainfluenza (4) Dementia Discharge Diagnoses with Status of Each Condition: (1) Multifocal pneumonia (2) Severe sepsis (3) Acute hypoxemic respiratory failure (4) Parainfluenza (5) Hypertension (6) Acute hypernatremia (7) Lactic acidosis (8) Dementia (9) Conjunctivitis - HPI History of Present Illness: History of Present Illness per Dr. Vidales's history and physical: Patient is a 78-year-old male with a past medical history of dementia who presented to the ED with worsening altered mental status. Patient was seen in the emergency department several days ago with weakness and fever and was diagnosed with parainfluenza. Unfortunately his symptoms continue to worsen and he presented again today. Prior to arrival, EMS was called and noted that he had a heart rate in the 250s and he was given a synchronized cardioversion due to concern for SVT. Upon presentation to the ED he was noted to be hypoxic requiring supplemental oxygen. Patient was noted to be severely septic with an elevated lactic acid. CT scans revealed evidence of pneumonia he was started on IV vancomycin and ceftriaxone. Per patient's POLST, he is DNR with comfort care orders. Discussion was had with his POA and guardian who informed me that she is open to treating all reversible conditions with antibiotics, fluids, medications however she did not want any heroic measures including intubation or pressors. He remains DNR. Patient also does not have any history of seizures. At baseline he is demented but is conversational. Patient admitted admitted to the ICU for further management of his severe sepsis. - HOSPITAL COURSE Hospital Course: Mr. Pacheco was admitted to the intensive care unit and treatment was initiated with Zosyn and vancomycin intravenously. He received dexamethasone for parainfluenza infection. His clinical condition improved and he was transferred to the medical floor for further care. Mr. Pacheco does not dress himself, toilet or feed himself. He has stage VII Alzheimer's dementia. Over the course of the next several days, goals of care were discussed with his sister who is the DURABLE POWER OF METAL POURER, and the decision was made to focus on comfort/hospice care. Continuing oxygen as a treatment was discussed with his durable power of business attorney and it was decided not to continue oxygen. Recommend treatment with morphine for symptoms of dyspnea. Arrangements for hospice have been made and he is to discharge back to [facility] for further care. - ALLERGIES Allergies/Adverse Reactions: Allergies Allergy/AdvReac Type Severity Reaction Status Date / Time nitroglycerin Allergy Unknown Verified 12/29/23 12:48 - MEDICATIONS Home Medications: Ambulatory Orders Medication Instructions Recorded Confirmed Bisacodyl Supp [Dulcolax Supp] 10 mg WA DAILY PRN #3 supp 01/04/24 LORazepam [Ativan] 0.5 mg PO Q6H PRN #10 tablet 01/04/24 Morphine Sulfate 5 mg PO Q4H PRN #30 ml 01/04/24 OLANZapine ODT [Zyprexa Odt] 5 mg TL BID PRN #10 tablet 01/04/24 Senna [Senokot] 8.6 mg PO BID PRN #10 tablet 01/04/24 Valproate Oral Soln [Valproic Acid 125 mg PO BID ea 01/04/24 Oral Soln] - PHYSICAL EXAM AT DISCHARGE General Appearance: positive: No acute distress Eyes Bilateral: positive: Conjunctivae nml, No scleral icterus Neck: positive: Thyroid nml, No JVD Respiratory: positive: Other (Good air exchange in all lung galarza no wheezing or crackles.) Cardiovascular: positive: Other (Positive S1-S2 no extra heart sounds.) Abdomen: positive: Other (Soft nontender nondistended positive bowel sounds) Skin: positive: No rash Extremities: positive: No pedal edema - LABS Result Diagrams: 01/02/24 05:47 01/02/24 05:47 - SEPSIS Current Stage of Sepsis: Resolved Possible source of Sepsis: Pulmonary Sepsis Criteria: Recorded Temperature greater than 38.3C or Less than 36C, Recorded Heart Rate greater than 90 bpm, Metabolic: lactate > 2 mmol/L - TIME SPENT Time Spent in Discharge (Minutes): 28
--- NOTE | 2024-01-04 08:35 | Discharge Plan ---
"Discharge Plan for SNF / ALPHONSE - Discharge Plan And Transition Orders Problem Reviewed?: Yes Disposition: 50 Hospice/Home DC/Xfer Condition: Stable Allergies and Adverse Reactions: Allergies Allergy/AdvReac Type Severity Reaction Status Date / Time nitroglycerin Allergy Unknown Verified 12/29/23 12:48 Health Concerns: History of Present Illness per Dr. Vidales's history and physical: Patient is a 78-year-old male with a past medical history of dementia who presented to the ED with worsening altered mental status. Patient was seen in the emergency department several days ago with weakness and fever and was diagnosed with parainfluenza. Unfortunately his symptoms continue to worsen and he presented again today. Prior to arrival, EMS was called and noted that he had a heart rate in the 250s and he was given a synchronized cardioversion due to concern for SVT. Upon presentation to the ED he was noted to be hypoxic requiring supplemental oxygen. Patient was noted to be severely septic with an elevated lactic acid. CT scans revealed evidence of pneumonia he was started on IV vancomycin and ceftriaxone. Per patient's POLST, he is DNR with comfort care orders. Discussion was had with his POA and guardian who informed me that she is open to treating all reversible conditions with antibiotics, fluids, medications however she did not want any heroic measures including intubation or pressors. He remains DNR. Patient also does not have any history of seizures. At baseline he is demented but is conversational. Patient admitted admitted to the ICU for further management of his severe seps is. Hospital Course: Mr. Pacheco was admitted to the intensive care unit and treatment was initiated with Zosyn and vancomycin intravenously. He received dexamethasone for parainfluenza infection. His clinical condition improved and he was transferred to the medical floor for further care. Mr. Pacheco does not dress himself, toilet or feed himself. He has stage VII Alzheimer's dementia. Over the course of the next several days, goals of care were discussed with his sister who is the DURABLE POWER OF TR[employer] MARKER, and the decision was made to focus on comfort/hospice care. Continuing oxygen as a treatment was discussed with his durable power of privacy attorney and it was decided not to continue oxygen. Recommend treatment with morphine for symptoms of dyspnea. Arrangements for hospice have been made and he is to discharge back to [facility] for further care. Plan of Treatment: Goal of care is comfort. Care Goals: Comfort Assessment: Mr. Pacheco has advance stage 7 Alzheimer's dementia and plan of care to focus on comfort. - SNF / ALPHONSE Transition Orders Admit to (Facility): [facility] Discharge Diagnosis: (1) Multifocal pneumonia (2) Severe sepsis-resolved (3) Acute hypoxemic respiratory failure (4) Parainfluenza (5) Hypertension (6) Acute hypernatremia (7) Lactic acidosis-resolved (8) Dementia (9) Conjunctivitis-resolved Medicare Certification Statement: I certify that [facility] is medically necessary on a continuing basis for any of the conditions for which she/he is receiving care during hospitalization. Notify PCP of admission and forward orders to primary provider for signature. Other Notification Orders: Call PCP immediately if patient develops dyspnea, chest pain/tightness or edema. House Bowel Program: Yes Additional Bowel Program Orders: If no BM after 2 days, nurse may give M.O.M. 30ml PO PRN and/or ducolax Supp 1 SD and/or MATT 250mg P.O., and/or senna 1-2 tabs PO. On day 3 nurse may give repeat above order until residents constipation is resolved. Annual Influenza Vaccine (between Mar 03 and September 30): Yes Two-step PPD per [facility] [id number] or approved exception documents: Yes Medication Orders: PLEASE REFER TO THE DISCHARGE MEDICATION LIST. - Medications New Prescriptions: LORazepam [Ativan] 0.5 mg PO Q6H PRN #10 tablet PRN Reason: Anxiety Bisacodyl Supp [Dulcolax Supp] 10 mg SD DAILY PRN #3 supp PRN Reason: Constipation Morphine Sulfate 5 mg PO Q4H PRN #30 ml PRN Reason: Moderate to Severe pain. Senna [Senokot] 8.6 mg PO BID PRN #10 tablet PRN Reason: Constipation OLANZapine ODT [Zyprexa Odt] 5 mg TL BID PRN #10 tablet PRN Reason: Nausea / Vomiting - Diet Texture: Dysphagia [facility] May have monthly special meal: Yes - Therapies | Activity Activity: Bed bound Weight Bearing: Bed bound Follow Up: Follow-up with Elmer Stroud DNP as needed."
[2024-01-04 09:08] VITALS: BP 181/90; O2SAT 88
== END 2024-01-04 13:10 | disposition hospice, home (50) | DRG 871 ==
LOC: EDUNIT# → ED 12:34 → ICU 16:37 → MS3 12-31 08:23 → MS2 01-01 15:59
PROVIDERS: ADMIT Family Medicine; ATTEND Internal Medicine
DX: A41.9 Sepsis, unspecified organism (principal); J18.9 Pneumonia, unspecified organism; J96.01 Acute respiratory failure with hypoxia; I47.10 Supraventricular tachycardia, unspecified; E87.0 Hyperosmolality and hypernatremia; N17.9 Acute kidney failure, unspecified; E87.20 Acidosis, unspecified; F03.90 Unspecified dementia, unspecified severity, without behavioral disturbance, psychotic disturbance, mood disturbance, and anxiety; Z20.818 Contact with and (suspected) exposure to other bacterial communicable diseases; Z20.822 Contact with and (suspected) exposure to COVID-19; Z20.828 Contact with and (suspected) exposure to other viral communicable diseases; G93.40 Encephalopathy, unspecified; R65.20 Severe sepsis without septic shock; B34.8 Other viral infections of unspecified site; I10 Essential (primary) hypertension; G30.9 Alzheimer's disease, unspecified; H10.9 Unspecified conjunctivitis; F02.80 Dementia in other diseases classified elsewhere, unspecified severity, without behavioral disturbance, psychotic disturbance, mood disturbance, and anxiety; Z51.5 Encounter for palliative care; Z66 Do not resuscitate; Z79.899 Other long term (current) drug therapy
CPT/HCPCS: 36415; 70450; 71045; 71250; 74176; 80048; 80053; 80202; 81001; 82330; 83036; 83605; 83690; 83735; 83880; 84100; 85025; 87040; 87150; 87493; 87633; 93005; 96361; 96374; 99291; A9270; J0131; J1650; J3370; J3490; 81003; 87086

== ENCOUNTER 2024-01-04 13:12 | Outpatient (CLI) | payer MEDICARE, MEDICAID | END 2024-01-04 13:13 | disposition hospice, home (50) | LOC: EMS 13:12 | PROVIDERS: ATTEND Internal Medicine | DX: Z51.5 Encounter for palliative care (principal); J18.9 Pneumonia, unspecified organism; B34.8 Other viral infections of unspecified site; F03.90 Unspecified dementia, unspecified severity, without behavioral disturbance, psychotic disturbance, mood disturbance, and anxiety; R41.0 Disorientation, unspecified; R53.83 Other fatigue; Z74.01 Bed confinement status | CPT/HCPCS: A0425; A0428 ==